=== PATIENT | female | born 1955 | race Caucasian/White ===

== ENCOUNTER 2017-11-13 02:00 | Emergency (ER) | payer SELFPAY ==
[~2017-11-13] VITALS: Ht 165.1 cm; Wt 66.3 kg
[2017-11-13] MEDS ORDERED: LISINOPRIL10 MG PO (02:43)
[2017-11-13] MEDS ORDERED: PROTONIX40 MG (02:43)
[2017-11-13] MEDS ORDERED: METOPROLOL SUCC25 MG PO (02:43)
[2017-11-13] MEDS ORDERED: ATENOLOL50 MG PO (02:43)
[2017-11-13] MEDS ORDERED: CLONIDINE HCL0.1 MG PO (02:43)
[2017-11-13] MEDS ORDERED: CARAFATE1 GM/10 ML PO (02:43)
[2017-11-13] MEDS ORDERED: ALBUTEROL0.63 MG/3 (02:43)
[2017-11-13] MEDS ORDERED: DEXAMETHASONE SOD PHOS 10 MG/1 ML VIAL INJ ONE (03:00)
== END 2017-11-13 03:50 | disposition home or self-care (01) ==
LOC: FSED 02:00
DX: R50.9 Fever, unspecified (principal); R05 Cough; J00 Acute nasopharyngitis [common cold]; J20.9 Acute bronchitis, unspecified
CPT/HCPCS: 87400; 99282; J1100

== ENCOUNTER 2018-08-06 13:06 | Emergency (ER) | payer SELFPAY ==
[~2018-08-06] VITALS: Ht 162.6 cm; Wt 63.5 kg
[~2018-08-06 13:06] MED LIST: ALBUTEROL0.63 MG/3; ATENOLOL50 MG PO; CARAFATE1 GM/10 ML PO; CLONIDINE HCL0.1 MG PO; LISINOPRIL10 MG PO; METOPROLOL SUCC25 MG PO; PROTONIX40 MG
--- OUTSIDE RECORDS SUMMARY | 2018-08-06 13:08 | XMS REPORT | Clinical Summary ---
Author Author [facility] Address Unknown Phone Unavailable Care Team Providers Care Area Relief Pilot Name Role Phone Asked, No Pcp PCP Unavailable Allergies No Known Allergies Medications End Date Status Medication Sig Dispensed Refills Start Date Active clonIDINE HCl (CATAPRES) Take 0.2 mg 0 0.2 MG tablet by mouth every evening. 08/29/2017 sucralfate (CARAFATE) 1 Take 1 tablet 120 tablet 0 gram tablet (1 g total) 7 by mouth 4 (four) times a day for 30 days. 08/29/2017 atorvastatin (LIPITOR) 40 Take 1 tablet 30 tablet 0 MG tablet (40 mg total) 7 by mouth nightly for 30 days. 08/29/2017 lisinopril Take 1 tablet 30 tablet 0 (PRINIVIL,ZESTRIL) 40 mg (40 mg total) 7 tablet by mouth every morning. 08/29/2017 metoprolol tartrate Take 1 tablet 60 tablet 0 (LOPRESSOR) 25 mg tablet (25 mg total) 7 by mouth 2 (two) times a day for 30 days. 08/29/2017 pantoprazole (PROTONIX) Take 1 tablet 60 tablet 0 40 MG EC tablet (40 mg total) 7 by mouth 2 (two) times a day for 30 days. 08/29/2017 amLODIPine (NORVASC) 10 Take 1 tablet 30 tablet 0 mg tablet (10 mg total) 7 by mouth daily for 30 days. Active Problems Problem Noted Date Peptic ulcer 07/29/2017 Acute kidney injury 07/29/2017 Leucocytosis 07/29/2017 Acute upper GI bleed 07/19/2017 Acute posthemorrhagic anemia 07/19/2017 Overview: Added automatically from request for surgery [id number] Hypertension COPD (chronic obstructive pulmonary disease) Social History Date Tobacco Use Types Packs/Day Years Used Current Every Day Smoker Cigarettes 1 45 Smokeless Tobacco: Never Used Alcohol Use Drinks/Week oz/Week Comments No Sex Assigned at Date Recorded Not on file Industry Job Start Date Occupation Not on file Not on file Not on file Travel End Travel History Travel Start No recent travel history available. Last Filed Vital Signs Not on file Plan of Treatment Health Maintenance Due Date Last Done Comments CERVICAL CANCER SCREENING 1976 BREAST CANCER SCREENING 2005 COLON CANCER SCREENING 2005 SHINGRIX VACCINE (#1) 2005 ZOSTER VACCINE 2015 INFLUENZA VACCINE 04/26/2018 Implants Device Identifier Shelf Expiration Date Model / Serial / Lot Implanted Type Area Manufactur er 12/24/2017 [id number] / / [id number] Device Vasclr Clsr Vasoactive Cardiovasc N/A: N/A Intstnl Peptd 6fr Angio-Seal - ular [id number] Implants Implanted: 07/21/2017 (Quantity not on file) 11/23/2018 [id number] / / [id number] Catheter Angio Architectural Modeler Ii 5fr Surgical N/A: N/A BSC 0.035in 65cm Selc Braidd Torque - Implants; PERIPHERAL [id number] Expanders; INTERVENTI Implanted: 07/21/2017 (Quantity not Extenders; ON on file) Surgical VASCULAR Wires RENAE Procedures Comments Procedure Name Priority Date/Time Associated Diagnosis TRANSFUSE FRESH FROZEN Routine 05/31/2018 PLASMA 5:43 PM CDT TRANSFUSE RED BLOOD CELLS Routine 05/31/2018 5:43 PM CDT TRANSFUSE RED BLOOD CELLS STAT 05/31/2018 5:43 PM CDT TRANSFUSE RED BLOOD CELLS Routine 05/31/2018 5:43 PM CDT after 08/05/2017 Results * Transfuse fresh frozen plasma (05/31/2018 5:43 PM CDT) * Transfuse RBC (05/31/2018 5:43 PM CDT) Only the most recent of 4 results within the time period is included. after 08/05/2017 Advance Directives Patient has advance care planning documents, and code status on file. For more i nformation, please contact: David Snyder [phone] [place] [address] Date Inactivated Comments Code Status Date Activated 07/30/2017 6:32 PM Full Code 07/19/2017 12:13 PM Code Status decision reached by: Patient
--- OUTSIDE RECORDS SUMMARY | 2018-08-06 13:09 | XMS REPORT | Continuity of Care Document ---
Author Author [facility] Interface Address Unknown Phone Unavailable Problems Problem Status Onset Date Classification Date Reported Comments Source RIGHT FINGER FRACTURE Active 03/08/2017 [facility] LAC FLEXOR TENDONRT HAND Active 03/08/2017 [facility] RIB PAIN Active 08/27/2013 [facility] FEVER Active 05/20/2012 [facility] ACUTE CELLULITIS OF THE LEG Active 09/17/2011 [facility] Cellulitis Active Problem 05/22/2012 [facility] Hypertension Active Problem 05/22/2012 [facility] Pain Active Problem 05/22/2012 [facility] Cellulitis Active Problem 03/12/2017 [facility] COPD Resolved Problem 03/12/2017 [facility] HTN - Hypertension Resolved Problem 03/12/2017 [facility] Hypertension Active Problem 03/12/2017 [facility], [facility] Pain Active Problem 03/12/2017 [facility], [facility] STRAIN OF MUSC/FASC/TEND AT WRS/HND LV, Active [facility] CELLULITIS OF LEG Active [facility] Medications Medication Details Route Status Patient Instructions Ordering Provider Order Date Source clindamycin 300 mg oral capsule 300 mg=1 cap, PO, Q6H, X 10 day, # 40 cap, 0 Refill(s), Pharmacy: [facility] Active 03/09/2017 [facility] Cephalexin 500 MG Oral Capsule [Keflex] 500 mg=1 cap, PO, QID, X 7 day, # 28 cap, 0 Refill(s) Active 03/09/2017 [facility] tramadol hydrochloride 50 MG Oral Tablet 50 mg=1 tab, PO, Q6H, PRN Pain, X 3 day, # 12 tab, 0 Refill(s) Active 03/09/2017 [facility] acetaminophen 325 mg oral tablet 650 mg=2 tab, PO, Q4H, PRN Pain 1-3/Temp > 100.4 F, X 7 day, # 84 tab, 0 Refill(s) Active 03/09/2017 [facility] Lisinopril 40 mg, 2 tab, Route: PO, Drug form: TAB, Daily, Dosing Weight 63.636, kg, Start date: 03/09/17 9:00:00 CDT, Duration: 30 day, Stop date: 04/07/17 9:00:00 CDTNotes: (Same as: Prinivil, Zestril) Inactive 03/09/2017 [facility] Buprenorphine 2 MG / Naloxone 0.5 MG Sublingual Tablet 1 tab, Route: SL, Drug Form: TABDIS, Dosing Weight 63.636, kg, BID, Start date: 03/09/17 9:00:00 CDT, Duration: 30 day, Stop date: 04/07/17 17:00:00 CDT Inactive 03/09/2017 [facility] potassium chloride 20 mEq oral tablet, extended release 40 mEq, 2 tab, Route: PO, Drug form: ERTAB, Daily, Dosing Weight 63.636, kg, Start date: 03/09/17 9:00:00 CDT, Duration: 30 day, Stop date: 04/07/17 9:00:00 CDTNotes: (Same as: K-Dur 20) Inactive 03/09/2017 [facility] Docusate 100 mg, 1 cap, Route: PO, Drug form: CAP, BID, Dosing Weight 63.636, kg, Start date: 03/09/17 9:00:00 CDT, Duration: 30 day, Stop date: 04/07/17 17:00:00 CDTNotes: (Same as: Colace) (Do Not Crush) Inactive 03/09/2017 [facility] pneumococcal capsular polysaccharide type 1 vaccine / pneumococcal capsular polysaccharide type 10A vaccine / pneumococcal capsular polysaccharide type 11A vaccine / pneumococcal capsular polysaccharide type 12F vaccine / pneumococcal capsular polysacchar 0.5 mL, Route: IM, Drug Form: INJ, Daily, Start date: 03/09/17 9:00:00 CDT, Duration: 1 doses or times, Stop date: 03/09/17 9:00:00 CDTNotes: (Same as: Pneumovax 23) Refrigerate Inactive 03/09/2017 [facility] Ancef 1 gm, Route: IVPB, ABXQ8H, Dosing Weight 63.636, kg, Start date: 03/08/17 23:00:00 CDT, Duration: 10 day, Stop date: 03/18/17 15:00:00 CDT, ABX Indication: Skin/Soft Tissue Infection Inactive 03/09/2017 [facility] Clonidine Hydrochloride 0.2 MG Oral Tablet 0.2 mg, 1 tab, Route: PO, Drug form: TAB, BID, Dosing Weight 63.636, kg, Priority: NOW, Start date: 03/08/17 19:15:00 CDT, Duration: 30 day, Stop date: 04/07/17 17:00:00 CDTNotes: (Same As: Catapres) No Longer Active 03/09/2017 [facility] Clindamycin 600 mg, 4 mL, Route: IVPB, Drug form: INJ, ABXQ8H, Dosing Weight 63.636, kg, Start date: 03/08/17 19:00:00 CDT, Duration: 7 day, Stop date: 03/15/17 11:00:00 CDT, ABX Indication: Skin/Soft Tissue Infect ionNotes: (clindamycin 150 mg/1 ml (600 mg/4 ml VL) INJ) (Same As: Cleocin) No Longer Active 03/09/2017 [facility] 200 ACTUAT Albuterol 0.09 MG/ACTUAT Metered Dose Inhaler 2 puff, Route: INHALATION, Drug Form: AERO/A, Dosing Weight 63.636, kg, RQID, PRN as needed for wheezing, Start date: 03/08/17 18:51:00 CDT, Duration: 30 day, Stop date: 04/07/17 18:50:00 CDTNotes: Same as: Ventolin HFA WASTE: Aerosol - Return to Pharmacy No Longer Active 03/08/2017 [facility] Clonidine Hydrochloride 0.2 MG Oral Tablet 0.2 mg=1 tab, PO, BID, 0 Refill(s) Active 03/08/2017 [facility] lisinopril 40 mg oral tablet 40 mg=1 tab, PO, Daily, 0 Refill(s) Active 03/08/2017 [facility] potassium chloride 10 mEq, 50 mL, Route: IVPB, Drug form: INJ, Q1H, Dosing Weight 63.636, kg, Total Dose=20 meq, Start date: 03/08/17 18:00:00 CDT, Duration: 2 doses or times, Stop date: 03/08/17 19:00:00 CDT, Peripheral LineNotes: (Same as: KCL) Infuse over 2 hours. Inactive 03/08/2017 [facility] Buprenorphine 4 MG / Naloxone 1 MG Oral Strip [Suboxone] 1 ea, SL, BID Active 03/08/2017 [facility] Naproxen 500 mg, 1 tab, Route: PO, Drug form: TAB, [id number], Dosing Weight 63.636, kg, Start date: 03/08/17 18:00:00 CDT, Duration: 30 day, Stop date: 04/07/17 6:00:00 CDTNotes: (Same as: Naprosyn) Take with food. No Longer Active 03/08/2017 [facility] Ondansetron 4 mg, 2 mL, Route: IVP, Drug form: INJ, Q6H, Dosing Weight 63.636, kg, PRN Nausea & Vomiting, Start date: 03/08/17 17:46:00 CDT, Duration: 30 day, Stop date: 04/07/17 17:45:00 CDTNotes: (Same as: Zofran) MEDICATION WASTE Product Size: 4 mg Product Wasted: ___ mg No Longer Active 03/08/2017 [facility] Acetaminophen 650 mg, 2 tab, Route: PO, Drug form: TAB, Q4H, Dosing Weight 63.636, kg, PRN Pain 1-3/Temp > 100.4 F, Start date: 03/08/17 17:46:00 CDT, Duration: 30 day, Stop date: 04/07/17 17:45:00 CDTNotes: Do not exceed 4 gm/day. (Same as: Tylenol) No Longer Active 03/08/2017 [facility] Lidocaine Hydrochloride 10 MG/ML Injectable Solution 200 mg, 20 mL, Route: SUB-Q, Drug Form: INJ, Dosing Weight 63.636, kg, ONCE, STAT, Start date: 03/08/17 17:30:00 CDT, Stop date: 03/08/17 17:30:00 CDTNotes: (Same as: Xylocaine) Inactive 03/08/2017 [facility] Ancef 1 gm, Route: IVPB, ONCE, Dosing Weight 63.636, kg, Start date: 03/08/17 16:45:00 CDT, Stop date: 03/08/17 16:45:00 CDT, ABX Indication: Open Wound Prophylaxis Inactive 03/08/2017 [facility] Ancef 2 gm, Route: IVPB, ONCE, Dosing Weight 63.636, kg, Priority: STAT, Start date: 03/08/17 16:14:00 CDT, Duration: 1 doses or times, Stop date: 03/08/17 16:14:00 CDT, ABX Indication: Open Wound Prophylaxis Inactive 03/08/2017 [facility] 0.5 ML Bordetella pertussis filamentous hemagglutinin vaccine, inactivated 0.016 MG/ML / Bordetella pertussis pertactin vaccine, inactivated 0.005 MG/ML / Bordetella pertussis toxoid vaccine, inactivated 0.016 MG/ML / diphtheria toxoid vaccine, inactivate 0.5 ml, Route: IM, Drug Form: SUSP, Dosing Weight 63.636, kg, ONCE, Start date: 03/08/17 16:13:00 CDT, Stop date: 03/08/17 16:13:00 CDT Inactive 03/08/2017 [facility] Ondansetron 4 mg, 2 mL, Route: IVP, Drug form: INJ, ONCE, Dosing Weight 63.636, kg, Priority: STAT, Start date: 03/08/17 14:54:00 CDT, Stop date: 03/08/17 14:54:00 CDTNotes: (Same as: Zofran) MEDICATION WASTE Product Size: 4 mg Product Wasted: ___ mg Inactive 03/08/2017 [facility] Morphine 4 mg, 1 mL, Route: IVP, Drug form: INJ, ONCE, Dosing Weight 63.636, kg, Priority: STAT, Start date: 03/08/17 14:54:00 CDT, Stop date: 03/08/17 14:54:00 CDTNotes: (Same as:MORPhine Sulfate) Inactive 03/08/2017 [facility] Sodium Chloride 0.154 MEQ/ML Injectable Solution 1,000 mL, 1000 ml/hr, Infuse Over: 1 hr, Route: IV, 1,000, Drug form: INJ, ONCE, Priority: STAT, Dosing Weight 63.636 kg, Start date: 03/08/17 14:54:00 CDT, Duration: 1 doses or times, Stop date: 03/08/17 14:54:00 CDT Inactive 03/08/2017 [facility] Zofran 4 mg, Route: IVP, Drug form: INJ, ONCE, Dosing Weight 86.364, kg, Priority: STAT, Start date: 08/28/13 5:02:00, Stop date: 08/28/13 5:02:00 Inactive [facility] 08/28/2013 [facility] morphine Sulfate 4 mg, Route: IVP, Drug form: INJ, ONCE, Dosing Weight 86.364, kg, Priority: STAT, Start date: 08/28/13 5:02:00, Stop date: 08/28/13 5:02:00 Inactive [facility] 08/28/2013 [facility] Vicodin 5 mg-300 mg oral tablet 1 tab, PO, Q6H, # 12 tab, 0 Refill(s) Active [facility] 08/28/2013 [facility] morphine Sulfate 4 mg, 2 mL, Route: IVP, Drug form: INJ, ONCE, Dosing Weight 86.364, kg, Priority: STAT, Start date: 08/28/13 0:14:00, Stop date: 08/28/13 0:14:00(Same as:MORPhine Sulfate) Inactive [facility] 08/28/2013 [facility] ondansetron 4 mg, 2 mL, Route: IVP, Drug form: INJ, ONCE, Dosing Weight 86.364, kg, Priority: STAT, Start date: 08/27/13 23:49:00, Stop date: 08/27/13 23:49:00(Same as: Zofran) No Longer Active [facility] 08/28/2013 [facility] pantoprazole 40 mg, Route: IVP, Drug form: INJ, ONCE, Dosing Weight 86.364, kg, For IV push reconstitute with 10 ml 0.9% sodium chloride and push over at least 3 minutes, Priority: STAT, Start date: 08/27/13 23:49:00, Stop date: 08/27/13 23:49:00For IV push reconstitute with 10 ml 0.9% sodium chloride and push over 2 minutes. (Same as: Protonix) No Longer Active [facility] 08/28/2013 [facility] Saline Flush 0.9% 5 mL, Route: IVP, Drug Form: INJ, Dosing Weight 86.364, kg, PRN, PRN Line Flush, Start date: 08/27/13 23:49:00, Duration: 24 hr, Stop date: 08/28/13 23:48:00(Same as: BD Posiflush) No Longer Active [facility] 08/28/2013 [facility] Garner 5/325 oral tablet 1-2 tab, PO, Q4-6H, PRN, 15 tab, Pain, Substitution Allowed, Maintenance PO Active [facility] 05/20/2012 [facility] Bactrim DS oral tablet 1 tab, PO, BID, 20 tab, Substitution Allowed, Maintenance PO Active [facility] 05/20/2012 [facility] acetaminophen-hydrocodone 325 mg-5 mg oral tablet 1 tab, Route: PO, Dosing Weight 90.909, kg, ONCE, STAT, Start date: 05/20/12 11:40:00, Stop date: 05/20/12 11:40:00 PO No Longer Active [facility] 05/20/2012 [facility] Tdap 0.5 mL, Route: IM, Dosing Weight 90.909, kg, ONCE, Start date: 05/20/12 11:40:00, Stop date: 05/20/12 11:40:00 Inactive [facility] 05/20/2012 [facility] ProAir HFA 90 mcg/inh inhalation aerosol with adapter 2 puff, INHALATION, Q6H, PRN, 1 gm, 2, 2, for wheezing, Substitution Allowed, Maintenance, AERO INHALATION Active [facility] 09/22/2011 [facility] Keflex 500 mg oral capsule 500 mg, 1 cap, PO, QID, 56 cap, 0, 0, Substitution Allowed, CAP PO Active [facility] 09/22/2011 [facility] Habitrol 21 mg/24 hr transdermal film, extended release 1 patch, TOP, Daily, 30 patch, 1, 1, Substitution Allowed TOP Active [facility] 09/22/2011 [facility] lisinopril 40 mg oral tablet 40 mg, 1 tab, PO, Daily, 30 tab, 1, 1, Substitution Allowed, TAB PO Active [facility] 09/22/2011 [facility] clonidine 0.2 mg oral tablet 0.2 mg, 1 tab, PO, TID, 90 tab, 1, 1, Substitution Allowed, TAB PO Active [facility] 09/22/2011 [facility] Garner 7.5/325 oral tablet 1 tab, Route: PO, Drug Form: TAB, Q4H, PRN Pain, Start date: 09/20/11 15:15:00, Duration: 30 day, Stop date: 10/20/11 15:14:00 PO No Longer Active [facility] 09/20/2011 [facility] Dilaudid 1 mg, 1 mL, Route: IV, Drug form: SOLN, Q6H, PRN Pain, Start date: 09/20/11 15:14:00, Duration: 30 day, Stop date: 10/20/11 15:13:00 IV No Longer Active [facility] 09/20/2011 [facility] cefazolin 1 gm, Route: IVPB, [id number], Priority: STAT, Start date: 09/19/11 20:13:00, Duration: 30 day, Stop date: 10/19/11 12:13:00 IVPB No Longer Active [facility] 09/20/2011 [facility] vancomycin 1.5 gm, 500 mL, Route: IV, Drug form: SOLN, [id number], Start date: 09/19/11 14:00:00, Duration: 30 day, Stop date: 10/19/11 2:00:00 IV No Longer Active [facility] 09/19/2011 [facility] Al hydroxide/Mg hydroxide/simethicone 10 mL, Route: PO, Drug Form: SUSP, QID, PRN Indigestion, Start date: 09/18/11 19:50:00, Duration: 30 day, Stop date: 10/18/11 19:49:00 PO No Longer Active [facility] 09/19/2011 [facility] Maalox 10 ml, Route: PO, QID, PRN Indigestion, Start date: 09/18/11 19:13:00, Duration: 30 day, Stop date: 10/18/11 19:12:00 PO No Longer Active [facility] 09/19/2011 [facility] Rocephin 1 gm, Route: IVPB, Drug form: PDR/INJ, [id number], Start date: 09/18/11 11:00:00, Duration: 30 day, Stop date: 10/17/11 23:00:00 IVPB No Longer Active [facility] 09/18/2011 [facility] famotidine 20 mg, 2 mL, Route: IVPB, Drug form: INJ, Q12H, Start date: 09/18/11 9:00:00, Duration: 30 day, Stop date: 10/17/11 21:00:00 IVPB No Longer Active [facility] 09/18/2011 [facility] clonidine 0.2 mg oral tablet 0.2 mg, 1 tab, Route: PO, Drug form: TAB, BID, Start date: 09/18/11 9:00:00, Duration: 30 day, Stop date: 10/17/11 21:00:00 PO No Longer Active [facility] 09/18/2011 [facility] lisinopril 40 mg, 2 tab, Route: PO, Drug form: TAB, Daily, Start date: 09/18/11 9:00:00, Duration: 30 day, Stop date: 10/17/11 9:00:00 PO No Longer Active [facility] 09/18/2011 [facility] nicotine 21 mg, 1 patch, Route: TOP, Drug form: ERFILM, Daily, Start date: 09/18/11 9:00:00, Duration: 30 day, Stop date: 10/17/11 9:00:00 TOP No Longer Active [facility] 09/18/2011 [facility] Cleocin HCl 600 mg, 4 mL, Route: IVPB, Drug form: INJ, ABXQ8H, Start date: 09/18/11 8:00:00, Duration: 30 day, Stop date: 10/18/11 0:00:00 IVPB No Longer Active [facility] 09/18/2011 [facility] ipratropium 0.02% inhalation solution 0.5 mg, 2.5 mL, Route: NEB, Drug form: SOLN, RQ6H, Start date: 09/18/11 2:00:00, Duration: 30 day, Stop date: 10/17/11 20:00:00 NEB No Longer Active [facility] 09/18/2011 [facility] albuterol 0.083% inhalation solution 2.49 mg, 3 mL, Route: NEB, Drug form: SOLN, RQ6H, Start date: 09/18/11 2:00:00, Duration: 30 day, Stop date: 10/17/11 20:00:00 NEB No Longer Active [facility] 09/18/2011 [facility] clindamycin 600 mg, Route: IVPB, ABXQ8H, Priority: STAT, Start date: 09/17/11 23:41:00, Duration: 30 day, Stop date: 10/17/11 15:41:00 IVPB No Longer Active [facility] 09/18/2011 [facility] Dilaudid 1 mg, 1 mL, Route: IV, Drug form: SOLN, Q3H, PRN Pain, Start date: 09/17/11 23:41:00, Duration: 30 day, Stop date: 10/17/11 23:40:00 IV No Longer Active [facility] 09/18/2011 [facility] Rocephin 1 gm, Route: IVPB, Drug form: PDR/INJ, ONCE, Start date: 09/17/11 22:23:00, Stop date: 09/17/11 22:23:00 IVPB No Longer Active [facility] 09/18/2011 [facility] clonidine 0.2 mg oral tablet 1 tab, Route: PO, ONCE, Start date: 09/17/11 22:19:00, Stop date: 09/17/11 22:19:00 PO No Longer Active [facility] 09/18/2011 [facility] clonidine 0.2 mg oral tablet 0.2 mg, 1 tab, PO, BID, Substitution Allowed, TAB PO No Longer Active [facility] 09/18/2011 [facility] lisinopril 40 mg oral tablet 40 mg, 1 tab, PO, Daily, 30 tab, Substitution Allowed, TAB PO No Longer Active [facility] 09/18/2011 [facility] ondansetron 4 mg, Route: IVP, Drug form: INJ, ONCE, Priority: STAT, Start date: 09/17/11 22:16:00, Stop date: 09/17/11 22:16:00 IVP No Longer Active [facility] 09/18/2011 [facility] Lovenox 90 mg, 0.9 mL, Route: SUB-Q, Drug form: INJ, ONCE, Start date: 09/17/11 22:11:00, Stop date: 09/17/11 22:11:00 SUB-Q No Longer Active [facility] 09/18/2011 [facility] Dilaudid 1 mg, 1 mL, Route: IV, Drug form: SOLN, ONCE, Priority: STAT, Start date: 09/17/11 22:10:00, Stop date: 09/17/11 22:10:00 IV No Longer Active [facility] 09/18/2011 [place] K-Dur 20 40 mEq, 2 tab, Route: PO, Drug form: ERTAB, ONCE, Start date: 09/17/11 21:50:00, Stop date: 09/17/11 21:50:00 PO No Longer Active [facility] 09/18/2011 [facility] clindamycin 900 mg, 6 mL, Route: IVPB, Drug form: INJ, ONCE, Priority: STAT, Start date: 09/17/11 21:14:00, Stop date: 09/17/11 21:14:00 IVPB No Longer Active [facility] 09/18/2011 [facility] Allergies, Adverse Reactions, Alerts Substance Category Reaction Severity Reaction type Status Date Reported Comments Source Immunizations Immunization Date Given Site Status Last Updated Comments Source pneumococcal 23-valent vaccine 03/09/2017 Not Given [facility] diphtheria/pertussis, acel/tetanus adult 05/20/2012 completed [facility] diphtheria/pertussis, acel/tetanus adult 05/20/2012 Left deltoid completed [facility] Results Order Name Results Value Reference Range Date Interpretation Comments Source CHEM PANEL eGFR 87 mL/min/1.73m2 03/09/2017 Result Comment: The eGFR is calculated using the CKD-EPI formula. In most young, healthy individuals the eGFR will be >90 mL/min/1.73m2. The eGFR declines with age. An eGFR of 60-89 may be normal in some populations, particularly the elderly, for whom the CKD-EPI formula has not been extensively validated. Use of the eGFR is not recommended in the following populations: Individuals with unstable creatinine concentrations, including patients and those with serious co-morbid conditions. Patients with extremes in muscle mass or diet. The data above are obtained from the National Kidney Disease Education Program (NKDEP) which additionally recommends that when the eGFR is used in patients with extremes of body mass index for purposes of drug dosing, the eGFR should be multiplied by the estimated BMI. [facility] CHEM PANEL AGAP 8.4 meq/L 10.0 - 20.0 03/09/2017 [facility] CHEM PANEL BUN 20 mg/dL 7 - 22 03/09/2017 [facility] CHEM PANEL Sodium Lvl 140 meq/L 135 - 145 03/09/2017 [facility] CHEM PANEL Creatinine Lvl 0.74 mg/dL 0.50 - 1.40 03/09/2017 [facility] CHEM PANEL Glucose Lvl 98 mg/dL 70 - 99 03/09/2017 [facility] CHEM PANEL CO2 30 meq/L 24 - 32 03/09/2017 [facility] CHEM PANEL Potassium Lvl 3.4 meq/L 3.5 - 5.1 03/09/2017 [facility] CHEM PANEL Calcium Lvl 8.7 mg/dL 8.5 - 10.5 03/09/2017 [facility] CHEM PANEL Chloride Lvl 105 meq/L 95 - 109 03/09/2017 [facility] BLOOD BANK RESULTS AB Int Cold Agg 03/08/2017 [facility] BLOOD BANK RESULTS Antibody Scrn Positive 1 (03/08/17 4:04 PM) 03/08/2017 Result Comment: 03/08/2017 17:35 [id number] "Significant Findings POSITIVE Antibody screen called to Francisco Valle at 1734 by ___[email or web address].Read Back OK." [facility] BLOOD BANK RESULTS ABO/Rh O POS 03/08/2017 [facility] BLOOD BANK RESULTS Path AB Blood Bank Physician ServiceThe patient is a 61 year-old female with a history of HTN, mild COPD, and chronic opioid dependence who presented with drainage and exposed tendon from a right 5th digit fracture sustained about one week prior to presentation. 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 The reactivity of patients plasma shows no specificity toward any RBC antigen and is weak at room temperature and absent at 37C. The antibody reactivity is removed after adsorption with rabbit erythrocytes stroma test (REST).Cold agglutinins are typically auto-antibodies and can be seen with EBV, mycoplasmal infections as well as lymphoproliferative disorders. They may be clinically significant if reactions occur at lower temperatures, such as in body extremities. Once a cold agglutinin is identified in a patient who requires blood transfusion, measures to warm the needed units, such as using the blood warmer during transfusion, are recommended to prevent transfusion reactions.Should RBC transfusion be required, crossmatch-compatible blood will be issued.The patients electronic medical record has been reviewed for relevant information.I have reviewed the test results and concur with the resident, Dr. Cristina Sinha's, interpretation.CPT: [id number] 03/08/2017 [facility] CHEM PANEL Bili Total 0.2 mg/dL 0.2 - 1.3 03/08/2017 [facility] CHEM PANEL Alk Phos 126 unit/L 39 - 136 03/08/2017 [facility] CHEM PANEL AST 25 unit/L 0 - 37 03/08/2017 [facility] CHEM PANEL Bili Direct 0.1 mg/dL 0.0 - 0.3 03/08/2017 [facility] CHEM PANEL ALT 35 unit/L 0 - 65 03/08/2017 [facility] CHEM PANEL Albumin Lvl 3.5 g/dL 3.5 - 5.0 03/08/2017 [facility] CHEM PANEL Total Protein 7.7 g/dL 6.4 - 8.4 03/08/2017 [facility] CHEM PANEL Globulin 4.2 g/dL 2.7 - 4.2 03/08/2017 [facility] CHEM PANEL A/G Ratio 0.8 0.7 - 1.6 03/08/2017 [facility] CHEM PANEL Bili Indirect 0.1 mg/dL 0.0 - 1.0 03/08/2017 [facility] CHEM PANEL eGFR 67 mL/min/1.73m2 03/08/2017 Result Comment: The eGFR is calculated using the CKD-EPI formula. In most young, healthy individuals the eGFR will be >90 mL/min/1.73m2. The eGFR declines with age. An eGFR of 60-89 may be normal in some populations, particularly the elderly, for whom the CKD-EPI formula has not been extensively validated. Use of the eGFR is not recommended in the following populations: Individuals with unstable creatinine concentrations, including patients and those with serious co-morbid conditions. Patients with extremes in muscle mass or diet. The data above are obtained from the National Kidney Disease Education Program (NKDEP) which additionally recommends that when the eGFR is used in patients with extremes of body mass index for purposes of drug dosing, the eGFR should be multiplied by the estimated BMI. [facility] CHEM PANEL BUN 25 mg/dL 7 - 22 03/08/2017 [facility] CHEM PANEL Glucose Lvl 121 mg/dL 70 - 99 03/08/2017 [facility] CHEM PANEL Calcium Lvl 9.0 mg/dL 8.5 - 10.5 03/08/2017 [facility] CHEM PANEL AGAP 9.7 meq/L 10.0 - 20.0 03/08/2017 [facility] CHEM PANEL Potassium Lvl 2.7 meq/L 3.5 - 5.1 03/08/2017 Result Comment: Critical Result(s) called to Jennifer/AYLIN at 03/08/2017 16:40 by VV. Read back OK. [facility] CHEM PANEL Chloride Lvl 102 meq/L 95 - 109 03/08/2017 [facility] CHEM PANEL Sodium Lvl 135 meq/L 135 - 145 03/08/2017 [facility] CHEM PANEL Creatinine Lvl 0.93 mg/dL 0.50 - 1.40 03/08/2017 [facility] CHEM PANEL CO2 26 meq/L 24 - 32 03/08/2017 [facility] CHEM PANEL Magnesium Lvl 2.0 mg/dL 1.8 - 2.4 03/08/2017 [facility] HEMATOLOGY MPV 7.6 fL 7.4 - 10.4 03/08/2017 [facility] HEMATOLOGY MCH 29.7 pg 27.0 - 31.0 03/08/2017 [facility] HEMATOLOGY MCHC 33.5 g/dL 32.0 - 36.0 03/08/2017 [facility] HEMATOLOGY RDW 13.4 % 11.5 - 14.5 03/08/2017 [facility] HEMATOLOGY Platelet 275 K/CMM 133 - 450 03/08/2017 [facility] HEMATOLOGY MCV 88.7 fL 80.0 - 98.0 03/08/2017 [facility] HEMATOLOGY Hct 40.8 % 36.0 - 48.0 03/08/2017 [facility] HEMATOLOGY RBC 4.60 M/CMM 4.20 - 5.40 03/08/2017 [facility] HEMATOLOGY Hgb 13.7 g/dL 12.0 - 16.0 03/08/2017 [facility] HEMATOLOGY WBC 7.7 K/CMM 3.7 - 10.4 03/08/2017 [facility] HEMATOLOGY PT 12.6 s 12.0 - 14.7 03/08/2017 [facility] HEMATOLOGY INR 0.92 0.85 - 1.17 03/08/2017 [facility] HEMATOLOGY PTT 30.0 s 22.9 - 35.8 03/08/2017 [facility] HEMATOLOGY Monocytes # 0.5 K/CMM 0.0 - 0.8 03/08/2017 [facility] HEMATOLOGY Eosinophils # 0.1 K/CMM 0.0 - 0.5 03/08/2017 [facility] HEMATOLOGY Lymphocytes # 2.0 K/CMM 1.0 - 5.5 03/08/2017 [facility] HEMATOLOGY Segs-Bands # 5.2 K/CMM 1.5 - 8.1 03/08/2017 [facility] HEMATOLOGY Basophils # 0.1 K/CMM 0.0 - 0.2 03/08/2017 [facility] HEMATOLOGY Lymphocytes 25.4 % 20.0 - 40.0 03/08/2017 [facility] HEMATOLOGY Segs 66.9 % 45.0 - 75.0 03/08/2017 [facility] HEMATOLOGY Basophils 0.8 % 0.0 - 1.0 03/08/2017 [facility] HEMATOLOGY Eosinophils 1.1 % 0.0 - 4.0 03/08/2017 [facility] HEMATOLOGY Monocytes 5.8 % 2.0 - 12.0 03/08/2017 [facility] CHEMISTRY Lipase Lvl 134 unit/L 73 - 393 08/28/2013 Normal [facility] CHEMISTRY CK-MB INDEX 2.9 0.0 - 2.5 08/28/2013 [facility] CHEMISTRY Total CK 51 unit/L 12 - 191 08/28/2013 Normal [facility] CHEMISTRY CK MB 1.5 ng/mL 0.5 - 3.6 08/28/2013 Normal [facility] CHEMISTRY Troponin-I null 0.00 - 0.40 08/28/2013 Normal [facility] CHEMISTRY Lipase Lvl 128 unit/L 73 - 393 08/28/2013 Normal [facility] CHEMISTRY Magnesium Lvl 1.8 mg/dL 1.8 - 2.4 08/28/2013 Normal [facility] CHEMISTRY Phosphorus 4.6 mg/dL 2.5 - 4.5 08/28/2013 [facility] CHEMISTRY eGFR 71 mL/min/1.73m2 08/28/2013 1Result Comment: The eGFR is calculated using the CKD-EPI formula. In most young, healthy individuals the eGFR will be >90 mL/min/1.73m2. The eGFR declines with age. An eGFR of 60-89 may be normal in some populations, particularly the elderly, for whom the CKD-EPI formula has not been extensively validated. Use of the eGFR is not recommended in the following populations: Individuals with unstable creatinine concentrations, including patients and those with serious co-morbid conditions. Patients with extremes in muscle mass or diet. The data above are obtained from the National Kid[employer] Education Program (NKDEP) which additionally recommends that when the eGFR is used in patients with extremes of body mass index for purposes of drug dosing, the eGFR should be multiplied by the estimated BMI. [facility] CHEMISTRY B/C Ratio 13 6 - 25 08/28/2013 Normal [facility] CHEMISTRY AGAP 7.8 meq/L 10.0 - 20.0 08/28/2013 LOW [facility] CHEMISTRY ASPARTATE TRANSAMINASE 13 unit/L 0 - 37 08/28/2013 Normal [facility] CHEMISTRY A/G Ratio 0.9 0.7 - 1.6 08/28/2013 Normal [facility] CHEMISTRY Globulin 3.9 g/dL 2.0 - 4.0 08/28/2013 Normal [facility] CHEMISTRY Potassium Lvl 3.8 meq/L 3.5 - 5.1 08/28/2013 Normal [facility] CHEMISTRY Sodium Lvl 137 meq/L 135 - 145 08/28/2013 Normal [facility] CHEMISTRY Calcium Lvl 9.2 mg/dL 8.5 - 10.5 08/28/2013 Normal [facility] CHEMISTRY CO2 28 meq/L 24 - 32 08/28/2013 Normal [facility] CHEMISTRY Chloride Lvl 105 meq/L 95 - 109 08/28/2013 Normal [facility] CHEMISTRY Albumin Lvl 3.7 g/dL 3.5 - 5.0 08/28/2013 Normal [facility] CHEMISTRY Total Protein 7.6 g/dL 6.4 - 8.4 08/28/2013 Normal [facility] CHEMISTRY Bili Total 0.3 mg/dL 0.2 - 1.3 08/28/2013 Normal [facility] CHEMISTRY Alk Phos 115 unit/L 39 - 136 08/28/2013 Normal [facility] CHEMISTRY ALANINE AMINOTRANSFERASE 18 unit/L 0 - 65 08/28/2013 Normal [facility] CHEMISTRY BUN 12 mg/dL 7 - 22 08/28/2013 Normal [facility] CHEMISTRY Glucose Lvl 107 mg/dL 70 - 99 08/28/2013 HI 2Interpretive Data: Adult reference range values reflect the clinical guidelines of the [employer]. [facility] CHEMISTRY Creatinine Lvl 0.9 mg/dL 0.5 - 1.4 08/28/2013 Normal [facility] HEMATOLOGY Basophils # 0.1 K/CMM 0.0 - 0.2 08/28/2013 Normal [facility] HEMATOLOGY Segs-Bands # 7.9 K/CMM 1.5 - 8.1 08/28/2013 Normal [facility] HEMATOLOGY Eosinophils # 0.2 K/CMM 0.0 - 0.5 08/28/2013 Normal [facility] HEMATOLOGY Monocytes # 0.5 K/CMM 0.0 - 0.8 08/28/2013 Normal [facility] HEMATOLOGY Lymphocytes # 2.1 K/CMM 1.0 - 5.5 08/28/2013 Normal [facility] HEMATOLOGY Eosinophils 2.3 % 0.0 - 4.0 08/28/2013 Normal [facility] HEMATOLOGY Monocytes 4.9 % 2.0 - 12.0 08/28/2013 Normal [facility] HEMATOLOGY Lymphocytes 19.4 % 20.0 - 40.0 08/28/2013 LOW [facility] HEMATOLOGY Segs 72.9 % 45.0 - 75.0 08/28/2013 Normal [facility] HEMATOLOGY Basophils 0.5 % 0.0 - 1.0 08/28/2013 Normal [facility] HEMATOLOGY MPV 7.8 fL 7.4 - 10.4 08/28/2013 Normal [facility] HEMATOLOGY Hct 35.3 % 36.0 - 48.0 08/28/2013 LOW [facility] HEMATOLOGY MCHC 33.8 g/dL 32.0 - 36.0 08/28/2013 Normal [facility] HEMATOLOGY MCV 90.2 fL 81.0 - 99.0 08/28/2013 Normal [facility] HEMATOLOGY MCH 30.5 pg 27.0 - 31.0 08/28/2013 Normal [facility] HEMATOLOGY RDW 15.0 % 11.5 - 14.5 08/28/2013 [facility] HEMATOLOGY Platelet 349 K/CMM 133 - 450 08/28/2013 Normal [facility] HEMATOLOGY WBC X 10x3 10.9 K/CMM 3.7 - 10.4 08/28/2013 [facility] HEMATOLOGY RBC X 10x6 3.92 M/CMM 4.20 - 5.40 08/28/2013 LOW [facility] HEMATOLOGY Hgb 11.9 g/dL 12.0 - 16.0 08/28/2013 LOW [facility] HEMATOLOGY aPTT 30.8 s 22.9 - 35.8 08/28/2013 Normal 4Interpretive Data: Heparin Therapeutic Range: 57 - 92 Seconds [facility] HEMATOLOGY PROTIME 13.1 s 12.0 - 14.7 08/28/2013 Normal [facility] HEMATOLOGY INR 1.00 0.85 - 1.17 08/28/2013 Normal 3Interpretive Data: RECOMMENDED RANGES FOR PROTIME INR: 2.0-3.0 for most medical and surgical thromboembolic states. 2.5-3.5 for artificial heart valves and recurrent embolism. INR SHOULD BE USED ONLY FOR PATIENTS ON STABLE ANTICOAGULANT THERAPY. [facility] Chest 2 views Chest 2 views PA and LATERAL CHEST (2 views) HISTORY: Chest pain There are no prior studies available for comparison. FINDINGS: The lungs are clear. The heart and pulmonary vasculature are within normal limits. There are no pleural effusions. The regional skeleton is unremarkable. There are surgical clips in the right upper quadrant consistent with a prior cholecystectomy. CONCLUSION: 1. No active disease. 2. There are surgical clips in the right upper quadrant consistent with a prior cholecystectomy. Coding: Chest 2 views CPT Code: 96245 SL: 12 Bert Cortez M.D. 08/28/2013 - - Read by: Bert Cortez Dictated Date/time: 08/28/13 00:41 Electronically Signed by: Bert Cortez MD 08/28/13 00:42 FINAL REPORT [facility] CHEMISTRY B/C Ratio 14 6 - 25 09/20/2011 Normal [facility] CHEMISTRY AGAP 14.5 meq/L 10.0 - 20.0 09/20/2011 Normal [facility] CHEMISTRY Globulin 3.5 g/dL 2.0 - 4.0 09/20/2011 Normal [facility] CHEMISTRY A/G Ratio 0.8 0.7 - 1.6 09/20/2011 Normal [facility] CHEMISTRY ALT 12 U/L 0 - 65 09/20/2011 Normal [facility] CHEMISTRY Albumin Lvl 2.8 g/dL 3.5 - 5.0 09/20/2011 LOW [facility] CHEMISTRY Total Protein 6.3 g/dL 6.4 - 8.4 09/20/2011 LOW [facility] CHEMISTRY AST 9 U/L 0 - 37 09/20/2011 Normal [facility] CHEMISTRY Bili Total 0.1 mg/dL 0.2 - 1.3 09/20/2011 LOW [facility] CHEMISTRY Alk Phos 65 U/L 39 - 136 09/20/2011 Normal [facility] CHEMISTRY Calcium Lvl 8.4 mg/dL 8.5 - 10.5 09/20/2011 LOW [facility] CHEMISTRY CO2 26 meq/L 24 - 32 09/20/2011 Normal [facility] CHEMISTRY BUN 11 mg/dL 7 - 22 09/20/2011 Normal [facility] CHEMISTRY Sodium Lvl 143 meq/L 135 - 145 09/20/2011 Normal [facility] CHEMISTRY Chloride Lvl 107 meq/L 95 - 109 09/20/2011 Normal [facility] CHEMISTRY Creatinine Lvl 0.8 mg/dL 0.5 - 1.4 09/20/2011 Normal [facility] CHEMISTRY Potassium Lvl 4.5 meq/L 3.5 - 5.1 09/20/2011 Normal [facility] CHEMISTRY Glucose Lvl 114 mg/dL 09/20/2011 NA 2Interpretive Data: Reference Ranges : 0 - 7 days : 41 - 90 mg/dL7 days - 150 yrs : 70 - 99 mg/dL (fasting), based on the clinical recommendations of the [employer]. [facility] HEMATOLOGY RDW 15.1 % 11.5 - 14.5 09/20/2011 HI [facility] HEMATOLOGY Platelet 207 K/CMM 133 - 450 09/20/2011 Normal [facility] HEMATOLOGY MPV 7.8 fL 7.4 - 10.4 09/20/2011 Normal [facility] HEMATOLOGY MCV 85.3 fL 81.0 - 99.0 09/20/2011 Normal [facility] HEMATOLOGY MCHC 34.9 g/dL 32.0 - 36.0 09/20/2011 Normal [facility] HEMATOLOGY MCH 29.8 pg 27.0 - 31.0 09/20/2011 Normal [facility] HEMATOLOGY Hct 30.3 % 36.0 - 48.0 09/20/2011 LOW [facility] HEMATOLOGY Hgb 10.6 g/dL 12.0 - 16.0 09/20/2011 LOW [facility] HEMATOLOGY WBC 7.0 K/CMM 3.7 - 10.4 09/20/2011 Normal [facility] HEMATOLOGY RBC 3.55 M/CMM 4.20 - 5.40 09/20/2011 LOW [facility] HEMATOLOGY Basophils 0.4 % 0.0 - 1.0 09/20/2011 Normal [facility] HEMATOLOGY Lymphocytes 31.8 % 20.0 - 40.0 09/20/2011 Normal [facility] HEMATOLOGY Segs 57.3 % 45.0 - 75.0 09/20/2011 Normal [facility] HEMATOLOGY Monocytes 7.7 % 2.0 - 12.0 09/20/2011 Normal [facility] HEMATOLOGY Basophils # 0.0 K/CMM 0.0 - 0.2 09/20/2011 Normal [facility] HEMATOLOGY Eosinophils 2.8 % 0.0 - 4.0 09/20/2011 Normal [facility] HEMATOLOGY Segs-Bands # 4.0 K/CMM 1.5 - 8.1 09/20/2011 Normal [facility] HEMATOLOGY Monocytes # 0.5 K/CMM 0.0 - 0.8 09/20/2011 Normal [facility] HEMATOLOGY Lymphocytes # 2.2 K/CMM 1.0 - 5.5 09/20/2011 Normal [facility] HEMATOLOGY Eosinophils # 0.2 K/CMM 0.0 - 0.5 09/20/2011 Normal [facility] BACTERIAL - SEROLOGY MRSA by PCR Negative 1 (09/19/2011 21:50:00) 09/20/2011 Normal 1Interpretive Data: INTERPRETATION: Negative......No MRSA DNA detected by PCR Positive......MRSA DNA detected by PCRASSAY LIMITATIONS:This is a screening test for colonization by MRSA. A positive test result indicates the patient is colonized by MRSA, but does not necessarily mean that an infection is present or that treatment is necessary. Likewise, a negative test does not exclude colonization or infection. Patients should be evaluatedclinically for symptoms and signs of infection before making therapeutic decisions. Routine decolonization is discouraged and should only be considered for select patients after consultation with an infectious diseases specialist. [facility] CHEMISTRY Globulin 3.7 g/dL 2.0 - 4.0 09/19/2011 Normal [facility] CHEMISTRY B/C Ratio 13 6 - 25 09/19/2011 Normal [facility] CHEMISTRY AGAP 10.1 meq/L 10.0 - 20.0 09/19/2011 Normal [facility] CHEMISTRY A/G Ratio 0.8 0.7 - 1.6 09/19/2011 Normal [facility] CHEMISTRY AST 6 U/L 0 - 37 09/19/2011 Normal [facility] CHEMISTRY Bili Total 0.1 mg/dL 0.2 - 1.3 09/19/2011 LOW [facility] CHEMISTRY Calcium Lvl 8.4 mg/dL 8.5 - 10.5 09/19/2011 LOW [facility] CHEMISTRY CO2 26 meq/L 24 - 32 09/19/2011 Normal [facility] CHEMISTRY Chloride Lvl 106 meq/L 95 - 109 09/19/2011 Normal [facility] CHEMISTRY Sodium Lvl 138 meq/L 135 - 145 09/19/2011 Normal [facility] CHEMISTRY Creatinine Lvl 0.9 mg/dL 0.5 - 1.4 09/19/2011 Normal [facility] CHEMISTRY Potassium Lvl 4.1 meq/L 3.5 - 5.1 09/19/2011 Normal [facility] CHEMISTRY Alk Phos 66 U/L 39 - 136 09/19/2011 Normal [facility] CHEMISTRY Albumin Lvl 3.0 g/dL 3.5 - 5.0 09/19/2011 LOW [facility] CHEMISTRY Total Protein 6.7 g/dL 6.4 - 8.4 09/19/2011 Normal [facility] CHEMISTRY ALT 11 U/L 0 - 65 09/19/2011 Normal [facility] CHEMISTRY BUN 12 mg/dL 7 - 22 09/19/2011 Normal [facility] CHEMISTRY Glucose Lvl 147 mg/dL 09/19/2011 NA 3Interpretive Data: Reference Ranges : 0 - 7 days : 41 - 90 mg/dL7 days - 150 yrs : 70 - 99 mg/dL (fasting), based on the clinical recommendations of the [employer]. [facility] HEMATOLOGY Hct 31.5 % 36.0 - 48.0 09/19/2011 LOW [facility] HEMATOLOGY RDW 15.1 % 11.5 - 14.5 09/19/2011 HI [facility] HEMATOLOGY MCHC 34.7 g/dL 32.0 - 36.0 09/19/2011 Normal [facility] HEMATOLOGY MPV 7.9 fL 7.4 - 10.4 09/19/2011 Normal [facility] HEMATOLOGY MCH 29.8 pg 27.0 - 31.0 09/19/2011 Normal [facility] HEMATOLOGY Platelet 201 K/CMM 133 - 450 09/19/2011 Normal [facility] HEMATOLOGY MCV 85.8 fL 81.0 - 99.0 09/19/2011 Normal [facility] HEMATOLOGY WBC 8.7 K/CMM 3.7 - 10.4 09/19/2011 Normal [facility] HEMATOLOGY Hgb 10.9 g/dL 12.0 - 16.0 09/19/2011 LOW [facility] HEMATOLOGY RBC 3.67 M/CMM 4.20 - 5.40 09/19/2011 LOW [facility] HEMATOLOGY Lymphocytes 21.2 % 20.0 - 40.0 09/19/2011 Normal [facility] HEMATOLOGY Eosinophils 0.4 % 0.0 - 4.0 09/19/2011 Normal [facility] HEMATOLOGY Monocytes 7.6 % 2.0 - 12.0 09/19/2011 Normal [facility] HEMATOLOGY Segs 70.5 % 45.0 - 75.0 09/19/2011 Normal [facility] HEMATOLOGY Basophils 0.3 % 0.0 - 1.0 09/19/2011 Normal [facility] HEMATOLOGY Monocytes # 0.7 K/CMM 0.0 - 0.8 09/19/2011 Normal [facility] HEMATOLOGY Lymphocytes # 1.8 K/CMM 1.0 - 5.5 09/19/2011 Normal [facility] HEMATOLOGY Basophils # 0.0 K/CMM 0.0 - 0.2 09/19/2011 Normal [facility] HEMATOLOGY Segs-Bands # 6.1 K/CMM 1.5 - 8.1 09/19/2011 Normal [facility] HEMATOLOGY Eosinophils # 0.0 K/CMM 0.0 - 0.5 09/19/2011 Normal [facility] CHEMISTRY ALT 16 U/L 0 - 65 09/18/2011 Normal [facility] CHEMISTRY AST 9 U/L 0 - 37 09/18/2011 Normal [facility] CHEMISTRY Alk Phos 80 U/L 39 - 136 09/18/2011 Normal [facility] CHEMISTRY Bili Total 0.2 mg/dL 0.2 - 1.3 09/18/2011 Normal [facility] CHEMISTRY B/C Ratio 12 6 - 25 09/18/2011 Normal [facility] CHEMISTRY A/G Ratio 0.8 0.7 - 1.6 09/18/2011 Normal [facility] CHEMISTRY Potassium Lvl 4.4 meq/L 3.5 - 5.1 09/18/2011 Normal [facility] CHEMISTRY Total Protein 6.9 g/dL 6.4 - 8.4 09/18/2011 Normal [facility] CHEMISTRY Calcium Lvl 8.6 mg/dL 8.5 - 10.5 09/18/2011 Normal [facility] CHEMISTRY Albumin Lvl 3.0 g/dL 3.5 - 5.0 09/18/2011 LOW [facility] CHEMISTRY Globulin 3.9 g/dL 2.0 - 4.0 09/18/2011 Normal [facility] CHEMISTRY Chloride Lvl 107 meq/L 95 - 109 09/18/2011 Normal [facility] CHEMISTRY Sodium Lvl 141 meq/L 135 - 145 09/18/2011 Normal [facility] CHEMISTRY CO2 26 meq/L 24 - 32 09/18/2011 Normal [facility] CHEMISTRY AGAP 12.4 meq/L 10.0 - 20.0 09/18/2011 Normal [facility] CHEMISTRY Glucose Lvl 118 mg/dL 09/18/2011 NA 4Interpretive Data: Reference Ranges : 0 - 7 days : 41 - 90 mg/dL7 days - 150 yrs : 70 - 99 mg/dL (fasting), based on the clinical recommendations of the [employer]. [facility] CHEMISTRY BUN 11 mg/dL 7 - 22 09/18/2011 Normal [facility] CHEMISTRY Creatinine Lvl 0.9 mg/dL 0.5 - 1.4 09/18/2011 Normal [facility] HEMATOLOGY WBC 13.3 K/CMM 3.7 - 10.4 09/18/2011 HI [facility] HEMATOLOGY Hgb 11.9 g/dL 12.0 - 16.0 09/18/2011 LOW [facility] HEMATOLOGY RBC 3.97 M/CMM 4.20 - 5.40 09/18/2011 LOW [facility] HEMATOLOGY Hct 34.1 % 36.0 - 48.0 09/18/2011 LOW [facility] HEMATOLOGY MCV 85.8 fL 81.0 - 99.0 09/18/2011 Normal [facility] HEMATOLOGY MCH 29.9 pg 27.0 - 31.0 09/18/2011 Normal [facility] HEMATOLOGY MCHC 34.9 g/dL 32.0 - 36.0 09/18/2011 Normal [facility] HEMATOLOGY RDW 15.5 % 11.5 - 14.5 09/18/2011 HI [facility] HEMATOLOGY MPV 7.9 fL 7.4 - 10.4 09/18/2011 Normal [facility] HEMATOLOGY Platelet 220 K/CMM 133 - 450 09/18/2011 Normal [facility] HEMATOLOGY Lymphocytes 12.3 % 20.0 - 40.0 09/18/2011 LOW [facility] HEMATOLOGY Basophils 0.3 % 0.0 - 1.0 09/18/2011 Normal [facility] HEMATOLOGY Monocytes 4.2 % 2.0 - 12.0 09/18/2011 Normal [facility] HEMATOLOGY Eosinophils 0.1 % 0.0 - 4.0 09/18/2011 Normal [facility] HEMATOLOGY Segs-Bands # 11.0 K/CMM 1.5 - 8.1 09/18/2011 [facility] HEMATOLOGY Monocytes # 0.6 K/CMM 0.0 - 0.8 09/18/2011 Normal [facility] HEMATOLOGY Basophils # 0.0 K/CMM 0.0 - 0.2 09/18/2011 Normal [facility] HEMATOLOGY Lymphocytes # 1.6 K/CMM 1.0 - 5.5 09/18/2011 Normal [facility] HEMATOLOGY Eosinophils # 0.0 K/CMM 0.0 - 0.5 09/18/2011 Normal [facility] HEMATOLOGY Segs 83.1 % 45.0 - 75.0 09/18/2011 HI [facility] CHEMISTRY Total CK 48 U/L 12 - 191 09/18/2011 Normal [facility] CHEMISTRY CK MB 1.2 ng/mL 0.5 - 3.6 09/18/2011 Normal [facility] CHEMISTRY Troponin-I null 0.00 - 0.40 09/18/2011 Normal [facility] HEMATOLOGY RBC Morph Normal (09/17/2011 20:20:00) 09/18/2011 Normal [facility] HEMATOLOGY Plt Morph Normal (09/17/2011 20:20:00) 09/18/2011 Normal [facility] PTT 33.1 s 22.9 - 35.8 09/18/2011 Normal 6Interpretive Data: Heparin Therapeutic Range: 57 - 92 Seconds [facility] HEMATOLOGY PT 13.9 s 12.0 - 14.7 09/18/2011 Normal [facility] HEMATOLOGY INR 1.07 0.85 - 1.17 09/18/2011 Normal 5Interpretive Data: RECOMMENDED RANGES FOR PROTIME INR: 2.0-3.0 for most medical and surgical thromboembolic states. 2.5-3.5 for artificial heart valves and recurrent embolism.INR SHOULD BE USED ONLY FOR PATIENTS ON STABLE ANTICOAGULANT THERAPY. [facility] IMMUNOLOGY CDC-HIV 1/2 Ab Negative *NA* (09/17/2011 20:20:00) Negative 09/18/2011 NA [facility] Vital Signs Vital Sign Value Date Comments Source Systolic (mm Hg) 124 03/09/2017 [facility] Diastolic (mm Hg) 70 03/09/2017 [facility] Respitory Rate 18 03/09/2017 [facility] Systolic (mm Hg) 185 03/09/2017 [facility] Diastolic (mm Hg) 101 03/09/2017 [facility] Heart Rate 81 03/09/2017 [facility] Temperature Oral (F) 97.4 F 03/09/2017 [facility] Respitory Rate 18 03/09/2017 [facility] Systolic (mm Hg) 176 03/09/2017 [facility] Diastolic (mm Hg) 102 03/09/2017 [facility] Heart Rate 77 03/09/2017 [facility] Temperature Oral (F) 97.3 F 03/09/2017 [facility] Respitory Rate 17 03/09/2017 [facility] Heart Rate 75 03/09/2017 [facility] Temperature Oral (F) 97.0 F 03/09/2017 [facility] Height 162.56 cm 03/08/2017 [facility] BMI Calculated 24.08 03/08/2017 [facility] Weight 63.636 03/08/2017 [facility] Weight 63.636 03/08/2017 [facility] BMI Calculated 24.08 03/08/2017 [facility] Height 162.56 cm 03/08/2017 [facility] Heart Rate 68 08/28/2013 [facility] Systolic (mm Hg) 116 08/28/2013 [facility] Respitory Rate 20 08/28/2013 [facility] Temperature Oral (F) 98.1 F 08/28/2013 [facility] Diastolic (mm Hg) 71 08/28/2013 [facility] Respitory Rate 20 08/28/2013 [facility] Heart Rate 72 08/28/2013 [facility] Diastolic (mm Hg) 61 08/28/2013 [facility] Systolic (mm Hg) 110 08/28/2013 [facility] Heart Rate 76 08/28/2013 [facility] Respitory Rate 18 08/28/2013 [facility] Systolic (mm Hg) 124 08/28/2013 [facility] Diastolic (mm Hg) 82 08/28/2013 [facility] Temperature Oral (F) 98.0 F 08/28/2013 [facility] Weight 86.364 08/28/2013 [facility] Temperature Oral (F) 97.4 F 08/28/2013 [facility] Weight 90.909 05/20/2012 [facility] Height 165.10 cm 05/20/2012 [facility] Diastolic (mm Hg) 61 09/22/2011 [facility] Systolic (mm Hg) 151 09/22/2011 [facility] Heart Rate 70 09/21/2011 [facility] Temperature Oral (F) 97.7 F 09/21/2011 [facility] Respitory Rate 22 09/21/2011 [facility] Diastolic (mm Hg) 90 09/21/2011 [facility] Systolic (mm Hg) 158 09/21/2011 [facility] Diastolic (mm Hg) 93 09/21/2011 [facility] Systolic (mm Hg) 148 09/21/2011 [facility] Temperature Oral (F) 97.8 F 09/21/2011 [facility] Heart Rate 71 09/21/2011 [facility] Respitory Rate 22 09/21/2011 [facility] Heart Rate 67 09/21/2011 [facility] Respitory Rate 22 09/21/2011 [facility] Temperature Oral (F) 97.9 F 09/21/2011 [facility] Weight 88.636 09/18/2011 [facility] Height 165.10 cm 09/18/2011 [facility] Encounters Location Location Details Encounter Type Encounter Number Reason For Visit Attending Provider ADM Date DC Date Status Source [facility] Inpatient [id number] ACUTE CELLULITIS OF THE LEG IVELISSE TRISTEN 09/17/2011 09/21/2011 Active [facility] [id number] ANAYELI HOLM 05/20/2012 05/20/2012 Active [facility] [id number] ANAYELI COLEMAN 08/27/2013 08/28/2013 Active [facility] Observation [id number] Lena Payne 03/08/2017 03/09/2017 [facility] Procedures Procedure Code Date Perfomer Comments Source section [id number] [facility] Cholecystectomy [id number] [facility] Tonsillectomy [id number] [facility] section [id number] [facility] Cholecystectomy [id number] [facility] Tonsillectomy [id number] [facility]
--- OUTSIDE RECORDS SUMMARY | 2018-08-06 13:10 | XMS REPORT ---
Author Author [facility] Address Unknown Phone Unavailable Care Team Providers Care Tuck Pointer Helper Name Role Phone ANALISAMelanie MALONEMAN Unavailable Unavailable Problems This patient has no known problems. Allergies, Adverse Reactions, Alerts This patient has no known allergies or adverse reactions. Medications This patient has no known medications. Results Test Description Test Time Test Comments Text Results Atomic Results Result Comments URINALYSIS WITH MICROSCOPIC 2017-04-20 12:47:00 Color (test code=UCOLR) Yellow Clarity (test code=UCLAR) Clear Glucose (test code=UGLUC) NEGATIVE NEGATIVE Bilirubin (test code=UBILI) NEGATIVE NEGATIVE Ketones (test code=UKET) NEGATIVE NEGATIVE Specific [place] (test code=USPGR) 1.010 1.005-1.030 Blood (test code=UBLD) NEGATIVE NEGATIVE PH (test code=UPH) 6.5 4.5-8.0 Protein (test code=UPROT) NEGATIVE NEGATIVE Urobilinogen (test code=U UROB) 0.2 >0.2 Nitrite (test code=UNITR) NEGATIVE NEGATIVE Leukocyte Esterase (test code=ULEUK) NEGATIVE NEGATIVE WBC (test code=WBCUR) None Seen 0-5 RBC (test code=RBCUR) None Seen 0-5 Epithial Cells (test code=U EPI) 10-20 0-10 Mucous (test code=UMUC) Trace None Seen Bacteria (test code=UBACT) None Seen None Seen,Trace DRUG SCREEN [id number] 12:39:00* Test Item Value Reference Range Comments PH (test code=UPH) 6.5 Specific [place] (test code=USPGR) 1.010 FT (test code=AMPHET) Negative (qualifier value) FT (test code=JAANY) Negative (qualifier value) FT (test code=BENZO) Negative (qualifier value) FT (test code=VENUS) Negative (qualifier value) FT (test code=MTD) Negative (qualifier value) FT (test code=OPIAT) Negative (qualifier value) FT (test code=PCP) Negative (qualifier value) The following table provides an interpretive guide for the Drugs of Abuse ran on the [employer] 5.1 analyzer listed there in: Amphetamines < 1000 ng/ml=Negative Barbituates < 200 ng/ml=Negative Benzodiazapines < 200 ngml=Negative Cocaine < 300 ng/ml=Negative Methadone < 300 ng/ml=Negative Opiate < 300 ng/ml=Negative PCP < 25 ng/ml=Negative THC < 50 ng/ml=Negative Results equal to or greater than the above cut- off values=Presumptive Positive. Confirmation of Presumptive Positive results a re available upon request. FT (test code=THC) Negative (qualifier value) ALCOHOL, [id number] 12:24:00* Test Item Value Reference Range Comments Alcohol % (test code=ALCPC) 0 % 0.00-0.00 Ethanol % 0.00 - 0.10 Sub-clinical 0.11 - 0.20 Emotional Instability 0.21 - 0.30 Confusion 0.31 - 0.40 Stupor 0.41 - 0.50 Coma >.50 Fatal TSH (Ultra Sensitive)2017-04-20 11:45:00* Test Item Value Reference Range Comments TSH (test code=TSH) 1.06 mIU/L 0.47-4.68 SALICYLATES (Aspirin)2017-04-20 11:15:00* Test Item Value Reference Range Comments Salicylate (test code=SALI) <1.0 mg/dl 0.0-30.0 Salicylates Reference Ranges: Therapeutic 15 - 30 mg/dl Toxicity >30 mg/dl Lethal >70 mg/dl ACETAMINOPHEN (Tyenol)2017-04-20 11:15:00* Test Item Value Reference Range Comments Acetaminophen (test code=ACET) <10 ug/ml 10-30 [id number] 11:15:00* Test Item Value Reference Range Comments Glucose (test code=GLU) 92 mg/dl 75-110 BUN (test code=BUN) 20.0 mg/dl 6.0-17.0 Creatinine (test code=CREA) 0.9 mg/dl 0.4-1.2 Sodium (test code=NA) 143 mmol/l 137-145 Potassium (test code=K) 4.8 mmol/l 3.5-5.0 Chloride (test code=CL) 106 mmol/l 98-107 CO2 (test code=CO2) 27 mmol/l 22-30 Calcium (test code=CALC) 9.3 mg/dl 8.4-10.2 T Protein (test code=TP) 6.9 gm/dl 5.1-8.7 Albumin (test code=ALB) 3.9 gm/dl 3.5-4.6 A/G Ratio (test code=AGRAT) 1.3 % 1.1-2.2 AST (SGOT) (test code=AST) 25 U/L 11-36 ALT (SGPT) (test code=ALT) 22 U/L 11-40 Alkaline Phos (test code=ALKP) 82 U/L 47-114 Total Bilirubin (test code=TBIL) 0.2 mg/dl 0.2-1.2 Globulin (test code=GLOBU) 3.0 gm/dl 2.3-3.5 Anion Gap (test code=GAP) 10 Calcium, Corrected (test code=CALCCORR) 9.4 mg/dl 8.4-10.2 Various formulas exist for corrected serum calcium results, each yielding different values. This corrected result was based on the formula: Corrected Calcium=SerumCalcium + [0.8 * ( 4 - SerumAlbumin)] EGFR if (test code=EGFRAA) >60 mL/min/1.73m\S\2 EGFR if Non- (test code=EGFRNA) >60 mL/min/1.73m\S\2 Estimated Glomerular Filtration Rate (eGFR) Reference Intervals Decision Points for 18 years and older and average body mass: >=60 Does not exclude kidney disease. 30 - 59 Suggests moderate chronic kidney disease and indicates the need for further investigation including assessment of proteinuria and cardiovascular factors. < 30 Usually indicates a need for referral for assessment and management of chronic kidney failure. CBC WITH AUTO [id number] 11:07:00* Test Item Value Reference Range Comments WBC (test code=WBC) 8.4 k/ul 4.8-10.8 RBC (test code=RBC) 4.42 Millions/ul 4.20-5.40 Hemoglobin (test code=HGB) 13.3 gm/dl 12.0-14.0 Hematocrit (test code=HCT) 39.5 % 37.0-47.0 MCV (test code=MCV) 89.3 fL 81.0-99.0 MCH (test code=MCH) 30.0 pg 27.0-31.0 MCHC (test code=MCHC) 33.6 gm/dl 33.0-37.0 RDW (test code=RDWVC) 13.8 % 11.5-14.5 Platelet (test code=PLT) 258 k/ul 130-400 MPV (test code=MPV) 7.3 fL 7.4-10.4 NE% (test code=NE) 71.8 % 42.0-75.0 LY% (test code=LY) 24.0 % 13.0-42.0 MO% (test code=MO) 3.2 % 4.0-14.0 EO% (test code=EO) 0.7 % 1.0-3.0 BA% (test code=BA) 0.3 % 1.0-3.0 NRBC, Auto (test code=NRBC_AUTO) 0 /100WBC 0-0
--- OUTSIDE RECORDS SUMMARY | 2018-08-06 13:10 | XMS REPORT | CCD ---
Author Author Auto Generated Organization [facility] Address Unknown Phone Unavailable Care Team Providers Care Manager Agency Name Role Phone Ethan Rodríguez CP Allergies, Adverse Reactions, Alerts Substance Reaction Status NKDA Active Problem List Condition Effective Dates Status Cellulitis Active Hypertension Active Pain Active Medications Medication Instructions Start Date End Date Status [place] 5/325 oral 1-2 tab, PO, Q4-6H, PRN, 15 tab, 05/20/2012 05/25/2012 Ordered tablet Pain, Substitution Allowed, Maintenance Bactrim DS oral 1 tab, PO, BID, 20 tab, 05/20/2012 05/30/2012 Ordered tablet Substitution Allowed, Maintenance acetaminophen-hydroc 1 tab, Route: PO, Dosing Weight 05/20/2012 05/20/2012 Completed odone 325 mg-5 mg 90.909, kg, ONCE, STAT, Start date: oral tablet 05/20/12 11:40:00, Stop date: 05/20/12 11:40:00 Tdap 0.5 mL, Route: IM, Dosing Weight 05/20/2012 05/20/2012 Completed 90.909, kg, ONCE, Start date: 05/20/12 11:40:00, Stop date: 05/20/12 11:40:00 Immunizations Vaccine Date Status diphtheria/pertussis, acel/tetanus adult 05/20/2012 Auth (Verified) Vital Signs Most recent to oldest [Reference Range]: 1 Height 165.10 cm (05/20/2012 11:18:00) Weight 90.909 kg (05/20/2012 11:18:00)
--- OUTSIDE RECORDS SUMMARY | 2018-08-06 13:10 | XMS REPORT | CCD ---
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 Phone Ethan Silveira CP Allergies, Adverse Reactions, Alerts Substance Reaction Status NKDA Active Problem List Condition Effective Dates Status Cellulitis Active COPD Resolved HTN - Hypertension Resolved Hypertension Active Pain Active Medications Medication Instructions Start Date End Date Status morphine Sulfate 4 mg, 2 mL, Route: IVP, Drug form: 08/28/2013 08/28/2013 Completed INJ, ONCE, Dosing Weight 86.364, kg, Priority: STAT, Start date: 08/28/13 0:14:00, Stop date: 08/28/13 0:14:00(Same as:MORPhine Sulfate) Tdap 0.5 mL, Route: IM, Dosing Weight 05/20/2012 05/20/2012 Completed 90.909, kg, ONCE, Start date: 05/20/12 11:40:00, Stop date: 05/20/12 11:40:00 ondansetron 4 mg, 2 mL, Route: IVP, Drug form: 08/27/2013 08/28/2013 Completed INJ, ONCE, Dosing Weight 86.364, kg, Priority: STAT, Start date: 08/27/13 23:49:00, Stop date: 08/27/13 23:49:00(Same as: Zofran) pantoprazole 40 mg, Route: IVP, Drug form: INJ, 08/27/2013 08/28/2013 Completed ONCE, Dosing Weight 86.364, kg, For IV push reconstitute with 10 ml 0.9% sodium chloride and push over at least 3 minutes, Priority: STAT, Start date: 08/27/13 23:49:00, Stop date: 08/27/13 23:49:00For IV push reconstitute with 10 ml 0.9% sodium chloride and push over 2 minutes. (Same as: Protonix) Saline Flush 0.9% 5 mL, Route: IVP, Drug Form: INJ, 08/27/2013 08/28/2013 Discontinued Dosing Weight 86.364, kg, PRN, PRN Line Flush, Start date: 08/27/13 23:49:00, Duration: 24 hr, Stop date: 08/28/13 23:48:00(Same as: BD Posiflush) Zofran 4 mg, Route: IVP, Drug form: INJ, 08/28/2013 08/28/2013 Completed ONCE, Dosing Weight 86.364, kg, Priority: STAT, Start date: 08/28/13 5:02:00, Stop date: 08/28/13 5:02:00 morphine Sulfate 4 mg, Route: IVP, Drug form: INJ, 08/28/2013 08/28/2013 Completed ONCE, Dosing Weight 86.364, kg, Priority: STAT, Start date: 08/28/13 5:02:00, Stop date: 08/28/13 5:02:00 Vicodin 5 mg-300 mg 1 tab, PO, Q6H, # 12 tab, 0 08/28/2013 Ordered oral tablet Refill(s) Immunizations Vaccine Date Status diphtheria/pertussis, acel/tetanus adult 05/20/2012 Auth (Verified) Vital Signs Most recent to oldest [Reference Range]: 1 2 3 Temperature Oral [96.4-99.1 DegF] 98.1 DegF (08/28/2013 05:20:00) 98.0 DegF (08/27/2013 23:15:00) 97.4 DegF (08/27/2013 19:38:00) Systolic Blood Pressure [90-140 mmHg] 116 mmHg (08/28/2013 05:20:00) 110 mmHg (08/28/2013 03:00:00) 124 mmHg (08/28/2013 00:45:00) Diastolic Blood Pressure [60-90 mmHg] 71 mmHg (08/28/2013 05:20:00) 61 mmHg (08/28/2013 03:00:00) 82 mmHg (08/28/2013 00:45:00) Respiratory Rate [14-20 BRMIN] 20 BRMIN (08/28/2013 05:20:00) 20 BRMIN (08/28/2013 03:00:00) 18 BRMIN (08/28/2013 00:45:00) Peripheral Pulse Rate [60-100 bpm] 68 bpm (08/28/2013 05:20:00) 72 bpm (08/28/2013 03:00:00) 76 bpm (08/28/2013 00:45:00) Weight 86.364 kg (08/27/2013 19:38:00) Results CHEMISTRY Most recent to oldest [Reference Range]: 1 2 Sodium Lvl [135-145 mEq/L] 137 mEq/L (08/28/2013 00:45:00) Potassium Lvl [3.5-5.1 mEq/L] 3.8 mEq/L (08/28/2013 00:45:00) Chloride Lvl [95-109 mEq/L] 105 mEq/L (08/28/2013 00:45:00) CO2 [24-32 mEq/L] 28 mEq/L (08/28/2013 00:45:00) AGAP [10.0-20.0 mEq/L] 7.8 mEq/L *LOW* (08/28/2013 00:45:00) Creatinine Lvl [0.5-1.4 mg/dL] 0.9 mg/dL (08/28/2013 00:45:00) eGFR 71 mL/min/1.73m2 1 *NA* (08/28/2013 00:45:00) BUN [7-22 mg/dL] 12 mg/dL (08/28/2013 00:45:00) B/C Ratio [6-25] 13 (08/28/2013 00:45:00) Glucose Lvl [70-99 mg/dL] 107 mg/dL 2 *HI* (08/28/2013 00:45:00) Total Protein [6.4-8.4 g/dL] 7.6 g/dL (08/28/2013 00:45:00) Albumin Lvl [3.5-5.0 g/dL] 3.7 g/dL (08/28/2013 00:45:00) Globulin [2.0-4.0 g/dL] 3.9 g/dL (08/28/2013 00:45:00) A/G Ratio [0.7-1.6] 0.9 (08/28/2013 00:45:00) Calcium Lvl [8.5-10.5 mg/dL] 9.2 mg/dL (08/28/2013 00:45:00) Phosphorus [2.5-4.5 mg/dL] 4.6 mg/dL *HI* (08/28/2013 00:45:00) Magnesium Lvl [1.8-2.4 mg/dL] 1.8 mg/dL (08/28/2013 00:45:00) ALT [0-65 unit/L] 18 unit/L (08/28/2013 00:45:00) AST [0-37 unit/L] 13 unit/L (08/28/2013 00:45:00) Alk Phos [39-136 unit/L] 115 unit/L (08/28/2013 00:45:00) Bili Total [0.2-1.3 mg/dL] 0.3 mg/dL (08/28/2013 00:45:00) Lipase Lvl [73-393 unit/L] 134 unit/L (08/28/2013 00:45:00) 128 unit/L (08/28/2013 00:45:00) Total CK [12-191 unit/L] 51 unit/L (08/28/2013 00:45:00) CK MB [0.5-3.6 ng/mL] 1.5 ng/mL (08/28/2013 00:45:00) CK MB Index [0.0-2.5] 2.9 *HI* (08/28/2013 00:45:00) Troponin-I [0.00-0.40 ng/mL] <0.02 ng/mL (08/28/2013 00:45:00) 1Result Comment: The eGFR is calculated using [...] from the National Kidney Disease Education Program ( NKDEP) which additionally recommends that when the eGFR is used in patients with extremes of body mass index for purposes of drug dosing, the eGFR should be mul tiplied by the estimated BMI. 2Interpretive Data: Adult reference range values reflect the clinical guidelines of the [place] [employer]. HEMATOLOGY Most recent to oldest [Reference Range]: 1 2 WBC [3.7-10.4 K/CMM] 10.9 K/CMM *HI* (08/28/2013 00:45:00) RBC [4.20-5.40 M/CMM] 3.92 M/CMM *LOW* (08/28/2013 00:45:00) Hgb [12.0-16.0 g/dL] 11.9 g/dL *LOW* (08/28/2013 00:45:00) Hct [36.0-48.0 %] 35.3 % *LOW* (08/28/2013 00:45:00) MCV [81.0-99.0 fL] 90.2 fL (08/28/2013 00:45:00) MCH [27.0-31.0 pg] 30.5 pg (08/28/2013 00:45:00) MCHC [32.0-36.0 g/dL] 33.8 g/dL (08/28/2013 00:45:00) RDW [11.5-14.5 %] 15.0 % *HI* (08/28/2013 00:45:00) Platelet [133-450 K/CMM] 349 K/CMM (08/28/2013 00:45:00) MPV [7.4-10.4 fL] 7.8 fL (08/28/2013 00:45:00) Segs [45.0-75.0 %] 72.9 % (08/28/2013 00:45:00) Lymphocytes [20.0-40.0 %] 19.4 % *LOW* (08/28/2013 00:45:00) Monocytes [2.0-12.0 %] 4.9 % (08/28/2013 00:45:00) Eosinophils [0.0-4.0 %] 2.3 % (08/28/2013 00:45:00) Basophils [0.0-1.0 %] 0.5 % (08/28/2013 00:45:00) Segs-Bands # [1.5-8.1 K/CMM] 7.9 K/CMM (08/28/2013 00:45:00) Lymphocytes # [1.0-5.5 K/CMM] 2.1 K/CMM (08/28/2013 00:45:00) Monocytes # [0.0-0.8 K/CMM] 0.5 K/CMM (08/28/2013 00:45:00) Eosinophils # [0.0-0.5 K/CMM] 0.2 K/CMM (08/28/2013 00:45:00) Basophils # [0.0-0.2 K/CMM] 0.1 K/CMM (08/28/2013 00:45:00) PT [12.0-14.7 seconds] 13.1 seconds (08/28/2013 00:45:00) INR [0.85-1.17] 1.00 3 (08/28/2013 00:45:00) PTT [22.9-35.8 seconds] 30.8 seconds 4 (08/28/2013 00:45:00) 3Interpretive Data: RECOMMENDED RANGES FOR PROTIME INR: 2.0-3.0 for most medical and surgical thromboembolic states. 2.5-3.5 for artificial heart valves and recurrent embolism. INR SHOULD BE USED ONLY FOR PATIENTS ON STABLE ANTICOAGULANT THERAPY. 4Interpretive Data: Heparin Therapeutic Range: 57 - 92 Seconds Procedures Procedures Date Related Diagnosis section Cholecystectomy Tonsillectomy
--- OUTSIDE RECORDS SUMMARY | 2018-08-06 13:10 | XMS REPORT | CCD ---
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 Phone Denzel Moe CP Allergies, Adverse Reactions, Alerts Substance Reaction Status NKDA Active Problem List Condition Effective Dates Status Cellulitis Active Hypertension Active Pain Active Medications Medication Instructions Start Date End Date Status clindamycin 600 mg, Route: IVPB, ABXQ8H, 09/17/2011 09/17/2011 Deleted Priority: STAT, Start date: 09/17/11 23:41:00, Duration: 30 day, Stop date: 10/17/11 15:41:00 famotidine 20 mg, 2 mL, Route: IVPB, Drug 09/18/2011 09/21/2011 Discontinued form: INJ, Q12H, Start date: 09/18/11 9:00:00, Duration: 30 day, Stop date: 10/17/11 21:00:00 Maalox 10 ml, Route: PO, QID, PRN 09/18/2011 09/18/2011 Deleted Indigestion, Start date: 09/18/11 19:13:00, Duration: 30 day, Stop date: 10/18/11 19:12:00 Lovenox 90 mg, 0.9 mL, Route: SUB-Q, Drug 09/17/2011 09/17/2011 Completed form: INJ, ONCE, Start date: 09/17/11 22:11:00, Stop date: 09/17/11 22:11:00 Dilaudid 1 mg, 1 mL, Route: IV, Drug form: 09/17/2011 09/17/2011 Completed SOLN, ONCE, Priority: STAT, Start date: 09/17/11 22:10:00, Stop date: 09/17/11 22:10:00 cefazolin 1 gm, Route: IVPB, ABXQ8H, 09/19/2011 09/21/2011 Discontinued Priority: STAT, Start date: 09/19/11 20:13:00, Duration: 30 day, Stop date: 10/19/11 12:13:00 K-Dur 20 40 mEq, 2 tab, Route: PO, Drug 09/17/2011 09/17/2011 Completed form: ERTAB, ONCE, Start date: 09/17/11 21:50:00, Stop date: 09/17/11 21:50:00 clonidine 0.2 mg 0.2 mg, 1 tab, Route: PO, Drug 09/18/2011 09/21/2011 Discontinued oral tablet form: TAB, BID, Start date: 09/18/11 9:00:00, Duration: 30 day, Stop date: 10/17/11 21:00:00 lisinopril 40 mg, 2 tab, Route: PO, Drug form: 09/18/2011 09/21/2011 Discontinued TAB, Daily, Start date: 09/18/11 9:00:00, Duration: 30 day, Stop date: 10/17/11 9:00:00 Rocephin 1 gm, Route: IVPB, Drug form: 09/17/2011 09/17/2011 Completed PDR/INJ, ONCE, Start date: 09/17/11 22:23:00, Stop date: 09/17/11 22:23:00 ProAir HFA 90 2 puff, INHALATION, Q6H, PRN, 1 gm, 09/21/2011 Ordered mcg/inh inhalation 2, 2, for wheezing, Substitution aerosol with adapter Allowed, Maintenance, AERO Keflex 500 mg oral 500 mg, 1 cap, PO, QID, 56 cap, 0, 09/21/2011 10/05/2011 Ordered capsule 0, Substitution Allowed, CAP Rocephin 1 gm, Route: IVPB, Drug form: 09/18/2011 09/19/2011 Discontinued PDR/INJ, [id number], Start date: 09/18/11 11:00:00, Duration: 30 day, Stop date: 10/17/11 23:00:00 Dilaudid 1 mg, 1 mL, Route: IV, Drug form: 09/17/2011 09/20/2011 Discontinued SOLN, Q3H, PRN Pain, Start date: 09/17/11 23:41:00, Duration: 30 day, Stop date: 10/17/11 23:40:00 Habitrol 21 mg/24 hr 1 patch, TOP, Daily, 30 patch, 1, 09/21/2011 Ordered transdermal film, 1, Substitution Allowed extended release lisinopril 40 mg 40 mg, 1 tab, PO, Daily, 30 tab, 1, 09/21/2011 Ordered oral tablet 1, Substitution Allowed, TAB Cleocin HCl 600 mg, 4 mL, Route: IVPB, Drug 09/18/2011 09/19/2011 Discontinued form: INJ, ABXQ8H, Start date: 09/18/11 8:00:00, Duration: 30 day, Stop date: 10/18/11 0:00:00 clonidine 0.2 mg 0.2 mg, 1 tab, PO, TID, 90 tab, 1, 09/21/2011 Ordered oral tablet 1, Substitution Allowed, TAB vancomycin 1.5 gm, 500 mL, Route: IV, Drug 09/19/2011 09/19/2011 Discontinued form: SOLN, [id number], Start date: 09/19/11 14:00:00, Duration: 30 day, Stop date: 10/19/11 2:00:00 clonidine 0.2 mg 1 tab, Route: PO, ONCE, Start date: 09/17/2011 09/17/2011 Completed oral tablet 09/17/11 22:19:00, Stop date: 09/17/11 22:19:00 clonidine 0.2 mg 0.2 mg, 1 tab, PO, BID, 09/17/2011 09/21/2011 Discontinued oral tablet Substitution Allowed, TAB lisinopril 40 mg 40 mg, 1 tab, PO, Daily, 30 tab, 09/17/2011 09/21/2011 Discontinued oral tablet Substitution Allowed, TAB Al hydroxide/Mg 10 mL, Route: PO, Drug Form: SUSP, 09/18/2011 09/21/2011 Discontinued hydroxide/simethicon QID, PRN Indigestion, Start date: e 09/18/11 19:50:00, Duration: 30 day, Stop date: 10/18/11 19:49:00 ipratropium 0.02% 0.5 mg, 2.5 mL, Route: NEB, Drug 09/18/2011 09/21/2011 Discontinued inhalation solution form: SOLN, RQ6H, Start date: 09/18/11 2:00:00, Duration: 30 day, Stop date: 10/17/11 20:00:00 ondansetron 4 mg, Route: IVP, Drug form: INJ, 09/17/2011 09/17/2011 Completed ONCE, Priority: STAT, Start date: 09/17/11 22:16:00, Stop date: 09/17/11 22:16:00 albuterol 0.083% 2.49 mg, 3 mL, Route: NEB, Drug 09/18/2011 09/21/2011 Discontinued inhalation solution form: SOLN, RQ6H, Start date: 09/18/11 2:00:00, Duration: 30 day, Stop date: 10/17/11 20:00:00 nicotine 21 mg, 1 patch, Route: TOP, Drug 09/18/2011 09/21/2011 Discontinued form: ERFILM, Daily, Start date: 09/18/11 9:00:00, Duration: 30 day, Stop date: 10/17/11 9:00:00 clindamycin 900 mg, 6 mL, Route: IVPB, Drug 09/17/2011 09/17/2011 Completed form: INJ, ONCE, Priority: STAT, Start date: 09/17/11 21:14:00, Stop date: 09/17/11 21:14:00 Onida 7.5/325 oral 1 tab, Route: PO, Drug Form: TAB, 09/20/2011 09/21/2011 Discontinued tablet Q4H, PRN Pain, Start date: 09/20/11 15:15:00, Duration: 30 day, Stop date: 10/20/11 15:14:00 Dilaudid 1 mg, 1 mL, Route: IV, Drug form: 09/20/2011 09/21/2011 Discontinued SOLN, Q6H, PRN Pain, Start date: 09/20/11 15:14:00, Duration: 30 day, Stop date: 10/20/11 15:13:00 Vital Signs Most recent to oldest [Reference Range]: 1 2 3 Height 165.10 cm (09/17/2011 19:56:00) Temperature Oral [96.4-99.1 DegF] 97.7 DegF (09/21/2011 16:00:00) 97.8 DegF (09/21/2011 12:00:00) 97.9 DegF (09/21/2011 08:00:00) Systolic Blood Pressure [90-140 mmHg] 151 mmHg *HI* (09/21/2011 21:20:00) 158 mmHg *HI* (09/21/2011 16:00:00) 148 mmHg *HI* (09/21/2011 12:00:00) Diastolic Blood Pressure [60-90 mmHg] 61 mmHg (09/21/2011 21:20:00) 90 mmHg (09/21/2011 16:00:00) 93 mmHg *HI* (09/21/2011 12:00:00) Respiratory Rate [14-20 BRMIN] 22 BRMIN *HI* (09/21/2011 16:00:00) 22 BRMIN *HI* (09/21/2011 12:00:00) 22 BRMIN *HI* (09/21/2011 08:00:00) Peripheral Pulse Rate [60-100 bpm] 70 bpm (09/21/2011 16:00:00) 71 bpm (09/21/2011 12:00:00) 67 bpm (09/21/2011 08:00:00) Weight 88.636 kg (09/17/2011 19:56:00) Results BACTERIAL - SEROLOGY Most recent to [Reference Range]: 1 2 3 MRSA by PCR Negative 1 (09/19/2011 21:50:00) 1Interpretive Data: INTERPRETATION: Negative......No MRSA DNA detected by PCR Positive......MRSA DNA detected by PCRASSAY LIMITATIONS:This is a screening test for colonization by MRSA. A positive test result indicates the patient is c olonized by MRSA, but does not necessarily mean that an infection is present or that treatment is necessary. Likewise, a negative test does not exclude coloniz ation or infection. Patients should be evaluatedclinically for symptoms and sig ns of infection before making therapeutic decisions. Routine decolonization is discouraged and should only be considered for select patients after consultation with an infectious diseases specialist. CHEMISTRY Most recent to oldest [Reference Range]: 1 2 3 Sodium Lvl [135-145 mEq/L] 143 mEq/L (09/20/2011 03:26:00) 138 mEq/L (09/19/2011 04:40:00) 141 mEq/L (09/18/2011 03:37:00) Potassium Lvl [3.5-5.1 mEq/L] 4.5 mEq/L (09/20/2011 03:26:00) 4.1 mEq/L (09/19/2011 04:40:00) 4.4 mEq/L (09/18/2011 03:37:00) Chloride Lvl [95-109 mEq/L] 107 mEq/L (09/20/2011 03:26:00) 106 mEq/L (09/19/2011 04:40:00) 107 mEq/L (09/18/2011 03:37:00) CO2 [24-32 mEq/L] 26 mEq/L (09/20/2011 03:26:00) 26 mEq/L (09/19/2011 04:40:00) 26 mEq/L (09/18/2011 03:37:00) AGAP [10.0-20.0 mEq/L] 14.5 mEq/L (09/20/2011 03:26:00) 10.1 mEq/L (09/19/2011 04:40:00) 12.4 mEq/L (09/18/2011 03:37:00) Creatinine Lvl [0.5-1.4 mg/dL] 0.8 mg/dL (09/20/2011 03:26:00) 0.9 mg/dL (09/19/2011 04:40:00) 0.9 mg/dL (09/18/2011 03:37:00) BUN [7-22 mg/dL] 11 mg/dL (09/20/2011 03:26:00) 12 mg/dL (09/19/2011 04:40:00) 11 mg/dL (09/18/2011 03:37:00) B/C Ratio [6-25] 14 (09/20/2011 03:26:00) 13 (09/19/2011 04:40:00) 12 (09/18/2011 03:37:00) Glucose Lvl 114 mg/dL 2 *NA* (09/20/2011 03:26:00) 147 mg/dL 3 *NA* (09/19/2011 04:40:00) 118 mg/dL 4 *NA* (09/18/2011 03:37:00) Total Protein [6.4-8.4 g/dL] 6.3 g/dL *LOW* (09/20/2011 03:26:00) 6.7 g/dL (09/19/2011 04:40:00) 6.9 g/dL (09/18/2011 03:37:00) Albumin Lvl [3.5-5.0 g/dL] 2.8 g/dL *LOW* (09/20/2011 03:26:00) 3.0 g/dL *LOW* (09/19/2011 04:40:00) 3.0 g/dL *LOW* (09/18/2011 03:37:00) Globulin [2.0-4.0 g/dL] 3.5 g/dL (09/20/2011 03:26:00) 3.7 g/dL (09/19/2011 04:40:00) 3.9 g/dL (09/18/2011 03:37:00) A/G Ratio [0.7-1.6] 0.8 (09/20/2011 03:26:00) 0.8 (09/19/2011 04:40:00) 0.8 (09/18/2011 03:37:00) Calcium Lvl [8.5-10.5 mg/dL] 8.4 mg/dL *LOW* (09/20/2011 03:26:00) 8.4 mg/dL *LOW* (09/19/2011 04:40:00) 8.6 mg/dL (09/18/2011 03:37:00) ALT [0-65 U/L] 12 U/L (09/20/2011 03:26:00) 11 U/L (09/19/2011 04:40:00) 16 U/L (09/18/2011 03:37:00) AST [0-37 U/L] 9 U/L (09/20/2011 03:26:00) 6 U/L (09/19/2011 04:40:00) 9 U/L (09/18/2011 03:37:00) Alk Phos [39-136 U/L] 65 U/L (09/20/2011 03:26:00) 66 U/L (09/19/2011 04:40:00) 80 U/L (09/18/2011 03:37:00) Bili Total [0.2-1.3 mg/dL] 0.1 mg/dL *LOW* (09/20/2011 03:26:00) 0.1 mg/dL *LOW* (09/19/2011 04:40:00) 0.2 mg/dL (09/18/2011 03:37:00) Total CK [12-191 U/L] 48 U/L (09/17/2011 20:20:00) CK MB [0.5-3.6 ng/mL] 1.2 ng/mL (09/17/2011 20:20:00) Troponin-I [0.00-0.40 ng/mL] <0.02 ng/mL (09/17/2011 20:20:00) 2Interpretive Data: Reference Ranges : 0 - 7 days : 41 - 90 mg/dL7 days - 150 yrs : 70 - 99 mg/dL (fasting), based on the clinical recommendations of the [place] [employer]. 3Interpretive Data: Reference Ranges : 0 - 7 days : 41 - 90 mg/dL7 days - 150 yrs : 70 - 99 mg/dL (fasting), based on the clinical recommendations of the [place] [employer]. 4Interpretive Data: Reference Ranges : 0 - 7 days : 41 - 90 mg/dL7 days - 150 yrs : 70 - 99 mg/dL (fasting), based on the clinical recommendations of the [place] [employer]. HEMATOLOGY Most recent to oldest [Reference Range]: 1 2 3 WBC [3.7-10.4 K/CMM] 7.0 K/CMM (09/20/2011 03:26:00) 8.7 K/CMM (09/19/2011 04:40:00) 13.3 K/CMM *HI* (09/18/2011 03:37:00) RBC [4.20-5.40 M/CMM] 3.55 M/CMM *LOW* (09/20/2011 03:26:00) 3.67 M/CMM *LOW* (09/19/2011 04:40:00) 3.97 M/CMM *LOW* (09/18/2011 03:37:00) Hgb [12.0-16.0 g/dL] 10.6 g/dL *LOW* (09/20/2011 03:26:00) 10.9 g/dL *LOW* (09/19/2011 04:40:00) 11.9 g/dL *LOW* (09/18/2011 03:37:00) Hct [36.0-48.0 %] 30.3 % *LOW* (09/20/2011 03:26:00) 31.5 % *LOW* (09/19/2011 04:40:00) 34.1 % *LOW* (09/18/2011 03:37:00) MCV [81.0-99.0 fL] 85.3 fL (09/20/2011 03:26:00) 85.8 fL (09/19/2011 04:40:00) 85.8 fL (09/18/2011 03:37:00) MCH [27.0-31.0 pg] 29.8 pg (09/20/2011 03:26:00) 29.8 pg (09/19/2011 04:40:00) 29.9 pg (09/18/2011 03:37:00) MCHC [32.0-36.0 g/dL] 34.9 g/dL (09/20/2011 03:26:00) 34.7 g/dL (09/19/2011 04:40:00) 34.9 g/dL (09/18/2011 03:37:00) RDW [11.5-14.5 %] 15.1 % *HI* (09/20/2011 03:26:00) 15.1 % *HI* (09/19/2011 04:40:00) 15.5 % *HI* (09/18/2011 03:37:00) Platelet [133-450 K/CMM] 207 K/CMM (09/20/2011 03:26:00) 201 K/CMM (09/19/2011 04:40:00) 220 K/CMM (09/18/2011 03:37:00) MPV [7.4-10.4 fL] 7.8 fL (09/20/2011 03:26:00) 7.9 fL (09/19/2011 04:40:00) 7.9 fL (09/18/2011 03:37:00) Segs [45.0-75.0 %] 57.3 % (09/20/2011 03:26:00) 70.5 % (09/19/2011 04:40:00) 83.1 % *HI* (09/18/2011 03:37:00) Lymphocytes [20.0-40.0 %] 31.8 % (09/20/2011 03:26:00) 21.2 % (09/19/2011 04:40:00) 12.3 % *LOW* (09/18/2011 03:37:00) Monocytes [2.0-12.0 %] 7.7 % (09/20/2011 03:26:00) 7.6 % (09/19/2011 04:40:00) 4.2 % (09/18/2011 03:37:00) Eosinophils [0.0-4.0 %] 2.8 % (09/20/2011 03:26:00) 0.4 % (09/19/2011 04:40:00) 0.1 % (09/18/2011 03:37:00) Basophils [0.0-1.0 %] 0.4 % (09/20/2011 03:26:00) 0.3 % (09/19/2011 04:40:00) 0.3 % (09/18/2011 03:37:00) Segs-Bands # [1.5-8.1 K/CMM] 4.0 K/CMM (09/20/2011 03:26:00) 6.1 K/CMM (09/19/2011 04:40:00) 11.0 K/CMM *HI* (09/18/2011 03:37:00) Lymphocytes # [1.0-5.5 K/CMM] 2.2 K/CMM (09/20/2011 03:26:00) 1.8 K/CMM (09/19/2011 04:40:00) 1.6 K/CMM (09/18/2011 03:37:00) Monocytes # [0.0-0.8 K/CMM] 0.5 K/CMM (09/20/2011 03:26:00) 0.7 K/CMM (09/19/2011 04:40:00) 0.6 K/CMM (09/18/2011 03:37:00) Eosinophils # [0.0-0.5 K/CMM] 0.2 K/CMM (09/20/2011 03:26:00) 0.0 K/CMM (09/19/2011 04:40:00) 0.0 K/CMM (09/18/2011 03:37:00) Basophils # [0.0-0.2 K/CMM] 0.0 K/CMM (09/20/2011 03:26:00) 0.0 K/CMM (09/19/2011 04:40:00) 0.0 K/CMM (09/18/2011 03:37:00) RBC Morph Normal (09/17/2011 20:20:00) Plt Morph Normal (09/17/2011 20:20:00) PT [12.0-14.7 seconds] 13.9 seconds (09/17/2011 20:20:00) INR [0.85-1.17] 1.07 5 (09/17/2011 20:20:00) PTT [22.9-35.8 seconds] 33.1 seconds 6 (09/17/2011 20:20:00) 5Interpretive Data: RECOMMENDED RANGES FOR PROTIME INR: 2.0-3.0 for most medical and surgical thromboembolic states. 2.5-3.5 for artificial heart valves and recurrent embolism.INR SHOULD BE USED ONLY FOR PATIENTS ON STABLE ANTICOAGULANT THERAPY. 6Interpretive Data: Heparin Therapeutic Range: 57 - 92 Seconds IMMUNOLOGY Most recent to oldest [Reference Range]: 1 2 3 CDC-HIV 1/2 Ab [Negative] Negative *NA* (09/17/2011 20:20:00)
--- OUTSIDE RECORDS SUMMARY | 2018-08-06 13:10 | XMS REPORT | Summary of Care ---
Author Author [facility] Organization [facility] Address Unknown Phone Unavailable Encounter RAYMOND Tidwell(UNA) [id number] Date(s): 03/08/17 - 03/09/17 [facility] [address] [employer] provided by [facility] [place] [address]- Discharge Disposition: Home or Self Care Attending Physician: Ann Chiu MD Admitting Physician: Lena Payne MD Vital Signs 1 2 3 Most recent to oldest [Reference Range]: 162.56 cm (03/08/17 5:13 PM) 162.56 cm (03/08/17 2:29 PM) Height 97.4 DegF (03/09/17 7:17 AM) 97.3 DegF (03/09/17 3:47 AM) 97.0 DegF (03/08/17 7:46 PM) Temperature Oral [96.4-99.1 DegF] 124/70 mmHg (03/09/17 10:22 AM) 185/101 mmHg *HI* (03/09/17 7:20 AM) 176/102 mmHg *HI* (03/09/17 7:17 AM) Blood Pressure [90-140/60-90 mmHg] 18 BRMIN (03/09/17 7:20 AM) 18 BRMIN (03/09/17 7:17 AM) 17 BRMIN (03/09/17 3:47 AM) Respiratory Rate [14-20 BRMIN] 81 bpm (03/09/17 7:20 AM) 77 bpm (03/09/17 7:17 AM) 75 bpm (03/09/17 3:47 AM) Peripheral Pulse Rate [60-100 bpm] 63.636 kg (03/08/17 5:13 PM) 63.636 kg (03/08/17 2:29 PM) Weight 24.08 m2 (03/08/17 5:13 PM) 24.08 m2 (03/08/17 2:29 PM) Body Mass Index Problem List Condition Effective Dates Status Health Status Informant Cellulitis(Confirmed Active ) COPD(Confirmed) Resolved HTN - Resolved Hypertension(Confirm ed) Hypertension(Confirm Active ed) Pain(Confirmed) Active Allergies, Adverse Reactions, Alerts Substance Reaction Severity Status NKDA Active Medications acetaminophen 650 mg, 2 tab, Route: PO, Drug form: TAB, Q4H, Dosing Weight 63.636, kg, PRN Lara n 1-3/Temp > 100.4 F, Start date: 03/08/17 17:46:00 CDT, Duration: 30 day, Stop date: 04/07/17 17:45:00 CDT Notes: Do not exceed 4 gm/day. (Same as: Tylenol) Start Date: 03/08/17 Stop Date: 03/09/17 Status: Discontinued acetaminophen 325 mg oral tablet 650 mg=2 tab, PO, Q4H, PRN Pain 1-3/Temp > 100.4 F, X 7 day, # 84 tab, 0 Refill(s) Start Date: 03/09/17 Stop Date: 03/16/17 Status: Ordered albuterol 90 mcg/inh inhalation aerosol 2 puff, Route: INHALATION, Drug Form: AERO/A, Dosing Weight 63.636, kg, RQID, ND N as needed for wheezing, Start date: 03/08/17 18:51:00 CDT, Duration: 30 day, S top date: 04/07/17 18:50:00 CDT Notes: Same as: Ventolin HFAWASTE: Aerosol - Return to Pharmacy Start Date: 03/08/17 Stop Date: 03/09/17 Status: Discontinued Ancef 1 gm, Route: IVPB, ONCE, Dosing Weight 63.636, kg, Start date: 03/08/17 16:45:00 CDT, Stop date: 03/08/17 16:45:00 CDT, ABX Indication: Open Wound Prophylaxis Start Date: 03/08/17 Stop Date: 03/08/17 Status: Completed Ancef 2 gm, Route: IVPB, ONCE, Dosing Weight 63.636, kg, Priority: STAT, Start date: 0 03/08/17 16:14:00 CDT, Duration: 1 doses or times, Stop date: 03/08/17 16:14:00 C DT, ABX Indication: Open Wound Prophylaxis Start Date: 03/08/17 Stop Date: 03/08/17 Status: Discontinued Ancef 1 gm, Route: IVPB, ABXQ8H, Dosing Weight 63.636, kg, Start date: 03/08/17 23:00: 00 CDT, Duration: 10 day, Stop date: 03/18/17 15:00:00 CDT, ABX Indication: Skin /Soft Tissue Infection Start Date: 03/08/17 Stop Date: 03/08/17 Status: Canceled buprenorphine-naloxone 2 mg-0.5 mg sublingual tablet, disintegrating 1 tab, Route: SL, Drug Form: TABDIS, Dosing Weight 63.636, kg, BID, Start date: 03/09/17 9:00:00 CDT, Duration: 30 day, Stop date: 04/07/17 17:00:00 CDT Start Date: 03/09/17 Stop Date: 03/09/17 Status: Discontinued clindamycin 600 mg, 4 mL, Route: IVPB, Drug form: INJ, ABXQ8H, Dosing Weight 63.636, kg, Sta rt date: 03/08/17 19:00:00 CDT, Duration: 7 day, Stop date: 03/15/17 11:00:00 CD T, ABX Indication: Skin/Soft Tissue Infection Notes: (clindamycin 150 mg/1 ml (600 mg/4 ml VL) INJ) (Same As: Cleocin) Start Date: 03/08/17 Stop Date: 03/09/17 Status: Discontinued clindamycin 300 mg oral capsule 300 mg=1 cap, PO, Q6H, X 10 day, # 40 cap, 0 Refill(s), Pharmacy: [facility] Start Date: 03/09/17 Stop Date: 03/19/17 Status: Ordered cloNIDine 0.2 mg oral tablet 0.2 mg, 1 tab, Route: PO, Drug form: TAB, BID, Dosing Weight 63.636, kg, Priorit y: NOW, Start date: 03/08/17 19:15:00 CDT, Duration: 30 day, Stop date: 04/07/17 17:00:00 CDT Notes: (Same As: Catapres) Start Date: 03/08/17 Stop Date: 03/09/17 Status: Discontinued cloNIDine 0.2 mg oral tablet 0.2 mg=1 tab, PO, BID, 0 Refill(s) Start Date: 03/08/17 Status: Ordered docusate 100 mg, 1 cap, Route: PO, Drug form: CAP, BID, Dosing Weight 63.636, kg, Start d ate: 03/09/17 9:00:00 CDT, Duration: 30 day, Stop date: 04/07/17 17:00:00 CDT Notes: (Same as: Colace) (Do Not Crush) Start Date: 03/09/17 Stop Date: 03/09/17 Status: Discontinued Keflex 500 mg oral capsule 500 mg=1 cap, PO, QID, X 7 day, # 28 cap, 0 Refill(s) Start Date: 03/09/17 Stop Date: 03/16/17 Status: Ordered lidocaine 1% 200 mg, 20 mL, Route: SUB-Q, Drug Form: INJ, Dosing Weight 63.636, kg, ONCE, STA T, Start date: 03/08/17 17:30:00 CDT, Stop date: 03/08/17 17:30:00 CDT Notes: (Same as: Xylocaine) Start Date: 03/08/17 Stop Date: 03/08/17 Status: Completed lisinopril 40 mg, 2 tab, Route: PO, Drug form: TAB, Daily, Dosing Weight 63.636, kg, Start date: 03/09/17 9:00:00 CDT, Duration: 30 day, Stop date: 04/07/17 9:00:00 CDT Notes: (Same as: Prinivil, Zestril) Start Date: 03/09/17 Stop Date: 03/09/17 Status: Discontinued lisinopril 40 mg oral tablet 40 mg=1 tab, PO, Daily, 0 Refill(s) Start Date: 03/08/17 Status: Ordered morphine Sulfate 4 mg, 1 mL, Route: IVP, Drug form: INJ, ONCE, Dosing Weight 63.636, kg, Priority : STAT, Start date: 03/08/17 14:54:00 CDT, Stop date: 03/08/17 14:54:00 CDT Notes: (Same as:MORPhine Sulfate) Start Date: 03/08/17 Stop Date: 03/08/17 Status: Completed naproxen 500 mg, 1 tab, Route: PO, Drug form: TAB, [id number], Dosing Weight 63.636, kg, Sta rt date: 03/08/17 18:00:00 CDT, Duration: 30 day, Stop date: 04/07/17 6:00:00 CD T Notes: (Same as: Naprosyn) Take with food. Start Date: 03/08/17 Stop Date: 03/09/17 Status: Discontinued ondansetron 4 mg, 2 mL, Route: IVP, Drug form: INJ, ONCE, Dosing Weight 63.636, kg, Priority : STAT, Start date: 03/08/17 14:54:00 CDT, Stop date: 03/08/17 14:54:00 CDT Notes: (Same as: Claudia) MEDICATION WASTE Product Size: 4 mgProduct Was nitza: ___ mg Start Date: 03/08/17 Stop Date: 03/08/17 Status: Completed ondansetron 4 mg, 2 mL, Route: IVP, Drug form: INJ, Q6H, Dosing Weight 63.636, kg, PRN Nause a & Vomiting, Start date: 03/08/17 17:46:00 CDT, Duration: 30 day, Stop date: 04/07/17 17:45:00 CDT Notes: (Same as: Claudia) MEDICATION WASTE Product Size: 4 mgProduct Was nitza: ___ mg Start Date: 03/08/17 Stop Date: 03/09/17 Status: Discontinued pneumococcal 23-valent vaccine 0.5 mL, Route: IM, Drug Form: INJ, Daily, Start date: 03/09/17 9:00:00 CDT, Dura tion: 1 doses or times, Stop date: 03/09/17 9:00:00 CDT Notes: (Same as: Pneumovax 23) Refrigerate Start Date: 03/09/17 Stop Date: 03/09/17 Status: Completed potassium chloride 10 mEq, 50 mL, Route: IVPB, Drug form: INJ, Q1H, Dosing Weight 63.636, kg, Total Dose=20 meq, Start date: 03/08/17 18:00:00 CDT, Duration: 2 doses or times, Stop date: 03/08/17 19:00:00 CDT, Peripheral Line Notes: (Same as: KCL) Infuse over 2 hours. Start Date: 03/08/17 Stop Date: 03/08/17 Status: Completed potassium chloride 20 mEq oral tablet, extended release 40 mEq, 2 tab, Route: PO, Drug form: ERTAB, Daily, Dosing Weight 63.636, kg, Sta rt date: 03/09/17 9:00:00 CDT, Duration: 30 day, Stop date: 04/07/17 9:00:00 CDT Notes: (Same as: K-Dur 20) Start Date: 03/09/17 Stop Date: 03/09/17 Status: Discontinued Sodium Chloride 0.9% (Bolus) IV 1,000 mL, 1000 ml/hr, Infuse Over: 1 hr, Route: IV, 1,000, Drug form: INJ, ONCE, Priority: STAT, Dosing Weight 63.636 kg, Start date: 03/08/17 14:54:00 CDT, Dur ation: 1 doses or times, Stop date: 03/08/17 14:54:00 CDT Start Date: 03/08/17 Stop Date: 03/08/17 Status: Completed Suboxone 4 mg-1 mg sublingual film 1 ea, SL, BID Start Date: 03/08/17 Status: Ordered tetanus/diphth/pertuss (Tdap) adult/adol 5 units-2.5 units-18.5 mcg/0.5 mL intra muscular suspension 0.5 ml, Route: IM, Drug Form: SUSP, Dosing Weight 63.636, kg, ONCE, Start date: 03/08/17 16:13:00 CDT, Stop date: 03/08/17 16:13:00 CDT Start Date: 03/08/17 Stop Date: 03/08/17 Status: Discontinued tramadol 50 mg oral tablet 50 mg=1 tab, PO, Q6H, PRN Pain, X 3 day, # 12 tab, 0 Refill(s) Start Date: 03/09/17 Stop Date: 03/12/17 Status: Ordered Results BLOOD BANK RESULTS Most recent to 1 2 oldest [Reference Range]: ABO/Rh O POS *Unknown* (03/08/17 4:04 PM) Antibody Scrn Positive 1 (03/08/17 4:04 PM) AB Int Cold Agg *Unknown* (03/08/17 4:04 PM) Path AB Blood Bank Physician Service The patient is a 61 year-old female with a history of HTN, mild COPD, and chronic opioid dependence who presented with drainage and exposed tendon from a right 5th digit fracture sustained about one week prior to presentation. She underwent a debridement of the tendon at the beside by the plastic surgery team and was started on antibiotics. A cold agglutinin has been detected in this patient s serum. The reactivity of patient s plasma shows no specificity toward any RBC antigen and is weak at room temperature and absent at 37C. The antibody reactivity is removed after adsorption with rabbit erythrocytes stroma test (REST). Cold agglutinins are typically auto-antibodies and can be [...] during transfusion, are recommended to prevent transfusion reactions. Should RBC transfusion be required, crossmatch-compatible blood will be issued. The patient s electronic medical record has been reviewed for relevant information. I have reviewed the test results and concur with the resident, Dr. Cristina Sinha's, interpretation. CPT: 55942-YP *NA* (03/08/17 4:04 PM) 1Result Comment: 03/08/2017 17:35 [id number] "Significant Findings POSITIVE Antibody screen called to Francisco Valle at 1734 by ___ JC2.Read Back OK." ELECTROLYTES Most recent to 1 2 oldest [Reference Range]: Sodium Lvl [135-145 140 mEq/L 135 mEq/L mEq/L] (03/09/17 6:30 AM) (03/08/17 4:04 PM) Potassium Lvl 3.4 mEq/L 2.7 mEq/L 1 [3.5-5.1 mEq/L] *LOW* *CRIT* (03/09/17 6:30 AM) (03/08/17 4:04 PM) Chloride Lvl [95-109 105 mEq/L 102 mEq/L mEq/L] (03/09/17 6:30 AM) (03/08/17 4:04 PM) CO2 [24-32 mEq/L] 30 mEq/L 26 mEq/L (03/09/17 6:30 AM) (03/08/17 4:04 PM) AGAP [10.0-20.0 8.4 mEq/L 9.7 mEq/L mEq/L] *LOW* *LOW* (03/09/17 6:30 AM) (03/08/17 4:04 PM) 1Result Comment: Critical Result(s) called to Jennifer/AYLIN at 03/08/2017 16:40 by VV. Read back OK. CHEM PANEL Most recent to 1 2 oldest [Reference Range]: Creatinine Lvl 0.74 mg/dL 0.93 mg/dL [0.50-1.40 mg/dL] (03/09/17 6:30 AM) (03/08/17 4:04 PM) eGFR 87 mL/min/1.73m2 1 67 mL/min/1.73m2 2 *NA* *NA* (03/09/17 6:30 AM) (03/08/17 4:04 PM) BUN [7-22 mg/dL] 20 mg/dL 25 mg/dL (03/09/17 6:30 AM) *HI* (03/08/17 4:04 PM) Glucose Lvl [70-99 98 mg/dL 121 mg/dL mg/dL] (03/09/17 6:30 AM) *HI* (03/08/17 4:04 PM) Total Protein 7.7 g/dL [6.4-8.4 g/dL] (03/08/17 4:04 PM) Albumin Lvl [3.5-5.0 3.5 g/dL g/dL] (03/08/17 4:04 PM) Globulin [2.7-4.2 4.2 g/dL g/dL] (03/08/17 4:04 PM) A/G Ratio [0.7-1.6] 0.8 (03/08/17 4:04 PM) Calcium Lvl 8.7 mg/dL 9.0 mg/dL [8.5-10.5 mg/dL] (03/09/17 6:30 AM) (03/08/17 4:04 PM) Magnesium Lvl 2.0 mg/dL [1.8-2.4 mg/dL] (03/08/17 4:04 PM) ALT [0-65 unit/L] 35 unit/L (03/08/17 4:04 PM) AST [0-37 unit/L] 25 unit/L (03/08/17 4:04 PM) Alk Phos [39-136 126 unit/L unit/L] (03/08/17 4:04 PM) Bili Total [0.2-1.3 0.2 mg/dL mg/dL] (03/08/17 4:04 PM) Bili Direct [0.0-0.3 0.1 mg/dL mg/dL] (03/08/17 4:04 PM) Bili Indirect 0.1 mg/dL [0.0-1.0 mg/dL] (03/08/17 4:04 PM) 1Result Comment: The eGFR is calculated using [...] be mul tiplied by the estimated BMI. 2Result Comment: The eGFR is calculated using the [...] be mul tiplied by the estimated BMI. HEMATOLOGY Most recent to 1 2 oldest [Reference Range]: WBC [3.7-10.4 K/CMM] 7.7 K/CMM (03/08/17 4:04 PM) RBC [4.20-5.40 4.60 M/CMM M/CMM] (03/08/17 4:04 PM) Hgb [12.0-16.0 g/dL] 13.7 g/dL (03/08/17 4:04 PM) Hct [36.0-48.0 %] 40.8 % (03/08/17 4:04 PM) MCV [80.0-98.0 fL] 88.7 fL (03/08/17 4:04 PM) MCH [27.0-31.0 pg] 29.7 pg (03/08/17 4:04 PM) MCHC [32.0-36.0 33.5 g/dL g/dL] (03/08/17 4:04 PM) RDW [11.5-14.5 %] 13.4 % (03/08/17 4:04 PM) Platelet [133-450 275 K/CMM K/CMM] (03/08/17 4:04 PM) MPV [7.4-10.4 fL] 7.6 fL (03/08/17 4:04 PM) Segs [45.0-75.0 %] 66.9 % (03/08/17 4:04 PM) Lymphocytes 25.4 % [20.0-40.0 %] (03/08/17 4:04 PM) Monocytes [2.0-12.0 5.8 % %] (03/08/17 4:04 PM) Eosinophils [0.0-4.0 1.1 % %] (03/08/17 4:04 PM) Basophils [0.0-1.0 0.8 % %] (03/08/17 4:04 PM) Segs-Bands # 5.2 K/CMM [1.5-8.1 K/CMM] (03/08/17 4:04 PM) Lymphocytes # 2.0 K/CMM [1.0-5.5 K/CMM] (03/08/17 4:04 PM) Monocytes # [0.0-0.8 0.5 K/CMM K/CMM] (03/08/17 4:04 PM) Eosinophils # 0.1 K/CMM [0.0-0.5 K/CMM] (03/08/17 4:04 PM) Basophils # [0.0-0.2 0.1 K/CMM K/CMM] (03/08/17 4:04 PM) PT [12.0-14.7 12.6 seconds seconds] (03/08/17 4:04 PM) INR [0.85-1.17] 0.92 (03/08/17 4:04 PM) PTT [22.9-35.8 30.0 seconds seconds] (03/08/17 4:04 PM) Immunizations Given and Recorded Vaccine Date Status Refusal Reason diphtheria/pertussis, acel/tetanus adult 05/20/12 Given Not Given Vaccine Date Status Refusal Reason pneumococcal 23-valent vaccine 03/09/17 Not Given Patient Refuses Procedures Procedure Date Related Diagnosis Body Site section Cholecystectomy Tonsillectomy Social History Social History Type Response Smoking Status Current every day smoker; Type: Cigarettes; Tobacco use per day: 20; Lives with someone who smokes; Cigarette Smoking Last 365 Days Yes; Reg Smoking Cessation Counseling Yes Assessment and Plan Extracted from: Title: PRS Hand Author: David Lujan MD Date: 03/09/17 PRS Progress Note s/p I&D of right SF abscess & FDP S: pain controlled, afebrile PE: vitals VitalsTmp(F)Tmp(C)[id number] 03/09 07:20 185/101---[id number]------ 03/09 07:1797.436.55vana459/102---[id number]------ 03/09 03:4797.336.04tgnu215/99---[id number]------ 03/08 19:4697.036.20ekte715/102---[id number]------ 03/08 18:59 99------ 24 Hr Tmax: 97.9F (36.61c) at 03/08 16:45Vital Signs are the last 5 in the past 48 hours. 24 Hr Tmin: 97.0F (36.11c) at 03/08 19:46Weights are the last 5 in 60 days, plus initial. DateWt(kg)Wt(lb)Ht(cm)Ht(in)MethodBMIBSA 03/08 (initial) 63.64 140.91809.56 64.00Estimated 24.11.70 (no point of care glucose results charted in last 24 hours) Most Recent Scores: 03/09/17Glasgow Coma Score15 03/09/17Pain Intensity NRS (0-10)0 03/09/17Braden Score21 03/09/17Johns Zamorano Fall Score6 GEN: NAD, A&O Extr: right SF wound packed - packing & dressing changed; wound clean Recommendations: - Ok to shower - Pack wound wet to dry with iodoform packing BID - Pt instructed on wound care - Keflex 500 mg po TID x 7 days - Tylenol 3 or Ultram for pain - Ok for discharge from PRS Standpoint - F/U with Dr Dias in 7-10 days. Pt may call [phone] to schedule follow up appointment - Please call with any questions or concerns. David Lujan Plastic Surgery PGY6 pgr [phone] Extracted from: Title: History and Physical Author: Ian Chao MD Date: 03/08/17 Assessment/Plan Pt is a 61 y/o F with PMH of HTN, mild COPD, and chronic opiod dependence on suboxone who presents with drainage and exposed tender from a R 5th digit fracture sustained one week ago. 1.Cellulitis, 5th digit R hand This patient previously failed outpatient Keflex, willswitch to clindamycin. Clindamycin 600 mg IV every 8 hourswhile admitted with transition to p.o. on discharge. Expect 10-14 day total course. Ordered: clindamycin, 600 mg, Route: IVPB, ABXQ8H, Dosing Weight 63.636, kg, Start date: 03/08/17 19:00:00 CDT, Duration: 7 day, Stop date: 03/15/17 11:00:00 CDT, ABX Indication: Skin/Soft Tissue Infection 2.Laceration of flexor tendon of right hand,Laceration of flexor tendon of right hand Plastics hand is following. We will follow up the recommendations tomorrow regarding final duration of IV antibiotics The plan to remove exposed tendon at bedsidethis evening. Nooperative intervention planned. Ordered: Admit/Condition 3.Acute hypokalemia Supplemented aggressively with 40 mEq by mouth and 20 mEq IV. Recheck in the morningwith magnesium level. Ordered: potassium chloride, 10 mEq, 50 mL, Route: IVPB, Drug form: INJ, Q1H, Dosing Weight 63.636, kg, Total Dose=20 meq, Start date: 03/08/17 18:00:00 CDT, Duration: 2 doses or times, Stop date: 03/08/17 19:00:00 CDT, Peripheral Line potassium chloride 20 mEq oral tablet, extended release, 40 mEq, 2 tab, Route: PO, Drug form: ERTAB, Daily, Dosing Weight 63.636, kg, Start date: 03/09/17 9:00:00 CDT, Duration: 30 day, Stop date: 04/07/17 9:00:00 CDT 4.Narcotic dependence on suboxone Continue Suboxone if available. Patient was encouraged to ask family members to bring in her medications. We will avoid narcotic medications while admitted For acute pain, will treat with Tylenol and naproxen. Ordered: buprenorphine-naloxone 2 mg-0.5 mg sublingual tablet, disintegrating, 1 tab, Route: SL, Drug Form: TABDIS, Dosing Weight 63.636, kg, BID, Start date: 03/09/17 9:00:00 CDT, Duration: 30 day, Stop date: 04/07/17 17:00:00 CDT 5.Benign essential HTN Continue home medication regimen with holding parameters. Ordered: cloNIDine 0.2 mg oral tablet, 0.2 mg, 1 tab, Route: PO, Drug form: TAB, BID, Dosing Weight 63.636, kg, Start date: 03/09/17 9:00:00 CDT, Duration: 30 day, Stop date: 04/07/17 17:00:00 CDT lisinopril, 40 mg, 2 tab, Route: PO, Drug form: TAB, Daily, Dosing Weight 63.636, kg, Start date: 03/09/17 9:00:00 CDT, Duration: 30 day, Stop date: 04/07/17 9:00:00 CDT Tobacco abuse cessation counseling provided - not yet ready to quit patch if requested Prophylaxis SCD/TEDs, ambulatory Disposition home tomorrow pm if wound improving on PO abx, 1 MN
[2018-08-06 13:48] VITALS: BP 167/111
[2018-08-06] MEDS ORDERED: CLONIDINE HCL 0.2 MG TAB PO ONE (14:00)
[2018-08-06] MEDS ORDERED: KETOROLAC TROMETHAMINE 60 MG/2 ML VIAL IM ONE (14:00)
== END 2018-08-06 14:09 | disposition home or self-care (01) ==
LOC: FSED 13:06
DX: M25.551 Pain in right hip (principal); I10 Essential (primary) hypertension; F17.210 Nicotine dependence, cigarettes, uncomplicated; Z87.19 Personal history of other diseases of the digestive system
CPT/HCPCS: 99282; J1885